=== PATIENT | female | born 1990 | race Caucasian/White ===

== ENCOUNTER 2019-12-05 11:14 | Emergency (ER) | payer OTHER, BC, SELFPAY ==
--- NOTE | ~2019-12-05 | CT_ITS ---
EXAMINATION: CT abdomen pelvis wo con DATE: 12/05/2019 12:47 INDICATION: Right flank pain. TECHNIQUE: Computed tomography (CT) of the abdomen and pelvis was performed without intravenous contr ast. Automated exposure control and iterative reconstruction technique were employed. Exam dose: 488 .05 mGy-cm total exam DLP. COMPARISON: None. FINDINGS: There is approximately 3 x 5 mm distal right ureteral calculus with moderately severe right hydroureteronephrosis, right periureteral stranding. Approximately 8 x 11 mm mid right renal nonobstructing calculus with attenuation of 1438 Hounsfield u nits. Approximately 5.3 x 8.2 mm lower pole right renal nonobstructing calculus with attenuation 970 Hounsf ield units. No left urinary tract calculus. The lung bases are clear. Heart size is within normal range. No pericardial or pleural effusion. The liver, gallbladder, bile ducts, spleen, pancreas and pancreatic duct are unremarkable. Normal mor phology of the adrenal glands. No renal mass lesion is evident. Normal caliber of the abdominal aorta. No intraperitoneal or retroperitoneal or pelvic mass lesion or adenopathy or ascites. The uterus, adnexal areas and urinary bladder are unremarkable. No bowel obstruction or intraperitoneal free air. Included skeletal structures are unremarkable. IMPRESSION: Approximately 8 x 11 mm mid right renal nonobstructing calculus with attenuation of 1438 Hounsfield units. Approximately 5.3 x 8.2 mm lower pole right renal nonobstructing calculus with attenuation 970 Hounsf ield units. Reviewed, dictated and finalized at [facility]. Reviewed, dictated and finalized at location [facility]. IMPRESSION: Approximately 8 x 11 mm mid right renal nonobstructing calculus wi th attenuation of 1438 Hounsfield units. Approximately 5.3 x 8.2 mm lower pole right renal nonobstructing calculus with attenuation 970 Hounsfield units.
--- NOTE | ~2019-12-05 | XR_ITS ---
EXAMINATION: XR abdomen/kub 1V DATE: 12/05/2019 12:39 INDICATION: Right flank pain. TECHNIQUE: A supine view of the abdomen on 2 radiographs was obtained. COMPARISON: 12/05/2019 CT abdomen pelvis FINDINGS: There is a small calcified calculus overlying the right ureterovesical junction there are 2 larger ca lcifications overlying the right kidney, consistent with right ureterovesical junction calculus and n onobstructing right kidney stones documented on the earlier 12/05/2019 CT abdomen pelvis examination. The psoas shadows are intact. No visceromegaly is evident. There is no evidence of bowel obstruction. IMPRESSION: Calcified radiographically positive right ureterovesical junction calculus Calcified right kidney stones Reviewed, dictated and finalized at location [facility].
[2019-12-05 11:16] VITALS: BP 149/93; PULSE 80; RESP 20; TEMP 36.7; O2SAT 100
[2019-12-05 11:55] LABS: Basophils Absolute Auto 0.1 K/mm3 (0.0-0.1); Basophils Percent Auto 0.9 % (0.2-1.2); Eosinophils Absolute Auto 0.1 K/mm3 (0-0.3); Eosinophils Percent Auto 1.2 % (0-4.4); Hematocrit 41.4 % (37.0-47.0); Hemoglobin 13.5 g/dL (12.0-15.0); Immature Granulocyte Absolute 0.03 K/mm3 (0.00-0.031); Immature Granulocyte Percent A 0.3 % (0-0.5); Lymphocytes Absolute Auto 1.79 K/mm3 (0.9-3.2); Lymphocytes Percent Auto 19.1 % (18.3-44.2); Mean Corpuscular HGB Conc 32.6 g/dl (32-36); Mean Corpuscular Hemoglobin 28.2 pg (26-34); Mean Corpuscular Volume 86.6 fl (80-100); Monocytes Absolute Auto 0.4 K/mm3 (0.1-0.6); Monocytes Percent Auto 4.7 % (2.6-8.5); Neutrophils Absolute Auto 6.9 K/mm3 (1.3-6.7); Neutrophils Percent Auto 73.8 % (45.5-73.1); Platelet Count Result 365 k/mm3 (150-375); Red Blood Count 4.78 M/mm3 (4.2-5.4); White Blood Count 9.4 K/mm3 (4.5-10.0)
[2019-12-05 12:00] LABS: Add Urine Microscopic? YES; Appearance Urine Clear (Clear); Bacteria Urine Trace /hpf; Bilirubin Urine Negative (Negative); Blood Urine 3+ (Negative); Color Urine Yellow (Yellow); Glucose Urine UA Negative (Negative); Ketones Urine Negative (Negative); Leukocyte Esterase Ur Negative LEU/UL (Negative); Mucus Urine Heavy /lpf; Nitrate Urine Negative (Negative); Protein Urine 1+ mg/dL (Negative); RBC Urine >75 /hpf (0-2); Specific Grav Ur 1.024 (1.001-1.035); Squamous Epithelial Cell Urine Many /hpf (Few); Urobilinogen Urine Negative mg/dL (<2.0)
[2019-12-05] MEDS: SODIUM CHLORIDE 0.9% IV 1,000 ML 999 ML IV CONT (12:07)
[2019-12-05] MEDS: ONDANSETRON INJ 4 MG/2 ML VIAL IV PUSH (12:08)
[2019-12-05] MEDS: FAMOTIDINE 20 MG/2 ML VIAL IV PUSH (12:08)
--- NOTE | 2019-12-05 13:01 | ED.BACK ---
HPI - Back Pain/Injury General Chief Complaint: Back Pain/Injury <Hadely Herrera PA-C - Last Filed: 12/05/19 14:43> Stated Complaint: poss. kidney stone <Hadley Herrera PA-C - Last Filed: 12/05/19 14:43> Time Seen by Provider: 12/05/19 11:27 <Hadley Herrera PA-C - Last Filed: 12/05/19 14:43> Source: patient <Hadley Herrera PA-C - Last Filed: 12/05/19 14:43> Mode of arrival: ambulatory <Hadley Herrera PA-C - Last Filed: 12/05/19 14:43> Limitations: no limitations <Hadley Herrera PA-C - Last Filed: 12/05/19 14:43> History of Present Illness HPI Narrative: Patient is a 29-year-old female who presents to emergency department for acute onset of right flank pain that began this morning as a sharp stabbing pain with associated nausea wraps from the back to the front denies similar occurrence in the past presents per private vehicle in no distress did take naproxen this morning patient denies injury trauma or recent illness <Hadley Herrera PA-C - Last Filed: 12/05/19 14:43> Related Data Home Medications: Home Medications Medication Instructions Recorded Confirmed [facility] cmb#95-ferrous fumarate-FA 1 tablet PO DAILY 05/30/19 05/30/19 [] ferrous sulfate [Iron (ferrous 325 mg PO BID 05/30/19 05/30/19 sulfate)] <Hadley Herrera PA-C - Last Filed: 12/05/19 14:43> Allergies/Adverse Reactions: Allergies Allergy/AdvReac Type Severity Reaction Status Date / Time No Known Allergies Allergy Verified 05/28/19 11:25 <Hadley Herrera PA-C - Last Filed: 12/05/19 14:43> Review of Systems Review of Systems: All systems reviewed & are unremarkable except as noted in HPI and below <Hadley Herrera PA-C - Last Filed: 12/05/19 14:43> PMFSH Surgical History Surgical History: Surgical History (Updated 12/05/19 @ 13:07 by Hadley Herrera PA-C) Previous section <Hadley Herrera PA-C - Last Filed: 12/05/19 14:43> Social History Social History: Social History Smoking status: Never smoker Second hand tobacco smoke exposure: No Substance use: never Gender identity (if verbalized by the patient): Female Spiritual care concerns: No <Hadley Herrera PA-C - Last Filed: 12/05/19 14:43> Exam Narrative: Exam Narrative: GENERAL: Well-appearing, well-nourished, and in no acute distress. HEAD: Normocephalic, atraumatic. EYES: PERRLA and EOMI. ENT: Nares clear, no rhinorrhea or epistaxis. Mucous membranes moist. CHEST: Clear to auscultation. No respiratory distress. No wheezes rales or rhonchi HEART: Regular rate and rhythm. No murmur heard. Normal peripheral pulses. ABDOMEN: Soft, nontender, nondistended EXTREMITIES: Normal range of motion. No edema. SKIN: Warm, dry, no rash. NEURO: No focal deficits. Alert and oriented x3. Cranial nerves II through XII grossly intact PSYCH: Normal mood and affect. <Hadley Herrera PA-C - Last Filed: 12/05/19 14:43> Course Consultations Consultation #1: Discussed case with urologist who knows the patient can be followed up on an outpatient basis provided with reasons to return would like the patient to be placed on Bactrim for 3 days <Hadley Herrera PA-C - Last Filed: 12/05/19 14:43> Date: 12/05/19 <Hadley Herrera PA-C - Last Filed: 12/05/19 14:43> Time: 14:38 <Hadley Herrera PA-C - Last Filed: 12/05/19 14:43> Vital Signs Vital signs: Vital Signs Temperature 98.1 F 12/05/19 11:16 Pulse Rate 80 12/05/19 11:16 Respiratory Rate 12/05/19 11:16 Blood Pressure 149/93 H 12/05/19 11:16 Pulse Oximetry 100 12/05/19 11:16 Temperature 98.1 F 12/05/19 11:16 Pulse Rate 80 12/05/19 15:21 Respiratory Rate 20 12/05/19 15:21 Blood Pressure 132/78 12/05/19 15:21 Pulse Oximetry 99 12/05/19 15:21 <Hadley Herrera PA-C - Last Filed: 12/05/19 14:43>
[2019-12-05 13:06] LABS: Blood Urea Nitrogen 15 mg/dL (7-17); Carbon Dioxide 25 mmol/L (22-30); Chloride 106 mmol/L (98-107); Estimated CRCL calculation 136 ml/min; Estimated Glomerular Filt Rate > 60; Glucose 116 mg/dL (65-105); Potassium 3.6 mmol/L (3.4-5.0); Sodium 139 mmol/L (137-145)
[2019-12-05 13:20] VITALS: BP 128/78; PULSE 76; RESP 18; O2SAT 99
[2019-12-05 15:21] VITALS: BP 132/78; PULSE 80; RESP 20; O2SAT 99
== END 2019-12-05 15:22 | disposition home or self-care (01) ==
PROVIDERS: Emergency Provider General Practice
DX: N20.0 Calculus of kidney (principal)
CPT/HCPCS: 36415; 74018; 74176; 80048; 81001; 81025; 85025; 96361; 96365; 96375; 99284; J0131; J2405; J7030

== ENCOUNTER 2019-12-11 10:25 | Outpatient (CLI) | payer OTHER, BC, SELFPAY ==
--- NOTE | ~2019-12-11 | XR_ITS ---
XR abdomen/kub 1V 12/11/2019 10:45 Indication: Right renal stones Procedure: KUB Comparison: 12/05/2019 Findings: There are right renal stones, largest measuringr 1.5 cm. There are pelvic phleboliths, unch anged. Bowel gas pattern is nonobstructive. No acute osseous abnormality. Impression: 1: Right nephrolithiasis, stable. Reviewed, dictated and finalized at location [facility]. Impression: 1: Right nephrolithiasis, stable.
== END 2019-12-11 10:26 | disposition home or self-care (01) ==
PROVIDERS: PCP Internal Medicine; Visit Provider Urology
DX: N20.0 Calculus of kidney (principal)
CPT/HCPCS: 74018

== ENCOUNTER 2019-12-16 08:04 | Outpatient (CLI) | payer OTHER, BC, SELFPAY | END 2019-12-16 08:05 | disposition home or self-care (01) | LOC: ANHSURGERY 08:06 | PROVIDERS: PCP Internal Medicine; Visit Provider Urology | DX: N20.1 Calculus of ureter (principal) | CPT/HCPCS: 87086; 87088 ==

== ENCOUNTER 2019-12-18 00:03 | Outpatient (CLI) | payer OTHER, BC, SELFPAY ==
[2019-12-18 17:43] LABS: SARS-CoV-2 RNA PCR Negative
== END 2019-12-18 00:04 | disposition home or self-care (01) ==
LOC: ANHCOVIDDT 00:03
PROVIDERS: PCP Internal Medicine; Visit Provider Urology
DX: Z01.818 Encounter for other preprocedural examination (principal); Z11.59 Encounter for screening for other viral diseases
CPT/HCPCS: 87635; C9803; U0003

== ENCOUNTER 2019-12-20 01:50 | Day surgery (SDC) | payer OTHER, BC, SELFPAY ==
[2019-12-12 13:39] VITALS: BMI 39.1
--- NOTE | ~2019-12-20 | XR_ITS ---
EXAMINATION: XR retrograde pyelo w/stent RT DATE: 12/20/2019 10:56 INDICATION: Nephrolithiasis for planned stone extraction and stent placement TECHNIQUE: 51 fluoroscopic images of the abdomen and pelvis were obtained during procedure performed by Dr. Lynn. Radiologist was not present for the imaging or procedure. The amount of fluoroscopy t angle used during this procedure was 0.4 minutes. COMPARISON: CT dated 12/05/2019 FINDINGS: Plaque Maker image demonstrates a couple stones at the lower pole of the right kidney. The smaller stone pre viously seen at the right ureterovesicular junction is not appreciated on the current fluoroscopic im ages. Subsequent images demonstrate contrast and a lucent gas bubble extending cephalad along the nor mal caliber right ureter. There is moderate right hydronephrosis. Final images demonstrate internal u reteral stent advanced over a wire into the right renal pelvis with distal loop in the bladder. It is unclear whether the stones remain within the contrast opacified inferior calyces on the final images . IMPRESSION: 1. Nephrolithiasis and moderate right hydronephrosis with placement of a right internal ureteral sten t. Unclear whether the stones were extracted and would correlate with procedure note. Reviewed, dictated and finalized at location [facility]. IMPRESSION: 1. Nephrolithiasis and moderate right hydronephrosis with placement of a right internal ureteral stent. Unclear whether the stones were extracted and would co rrelate with procedure note.
--- NOTE | 2019-12-20 07:20 | WPDHPUPDATE1 ---
History and Physical Update Update Date/Time: 12/20/19 07:20 History and Physical has been reviewed, including an updated exam of the patient. There are NO changes in the patient's condition. Risks, benefits, and alternatives have been discussed and questions answered. Patient agrees to proceed with procedure.
[2019-12-20 09:31] VITALS: BP 125/71; PULSE 80; RESP 20; TEMP 36.3; O2SAT 99
[2019-12-20] MEDS: LACTATED RINGERS 1,000 ML 30 ML IV CONT (10:00)
--- NOTE | 2019-12-20 10:11 | WPDANESEPPF ---
Anes - Initial Pre Proc Eval Procedure: Operation Date: 12/20/19 11:15 Proposed Procedures p Cystoscopy, Right Ureteroscopy, Right Stent Placement - Jose Lynn MD Date/Time: 12/20/19 10:11 Surgeon: Jose Lynn MD Pre Op Diagnosis: Right ureteral Stone Patient Data Age: 29 Gender: F Height: 5 ft 4 in Weight: 105.2 kg Last Vital Signs Temp 97.3 F L 12/20/19 09:31 Pulse 80 12/20/19 09:31 Resp 20 12/20/19 09:31 BP 125/71 12/20/19 09:31 Pulse Ox 99 12/20/19 09:31 Allergies Allergy/AdvReac Type Severity Reaction Status Date / Time No Known Allergies Allergy Verified 12/20/19 09:36 Home Medications Medication Instructions Recorded Confirmed Type hydrocodone-acetaminophen 1 tablet PO Q6H PRN #7 tablet 12/05/19 12/20/19 Rx ketorolac 10 mg PO QID PRN #5 tablet 12/05/19 12/20/19 Rx ondansetron 4 mg PO Q6H PRN #10 tablet 12/05/19 12/20/19 Rx tamsulosin [Flomax] 0.4 mg PO DAILY #7 cap 12/05/19 12/20/19 Rx Patient hx anesthesia problems: none Family hx anesthesia problems: none [facility] Past Medical History Medical History (Updated 12/20/19 @ 10:10 by Henry Alvarado MD) Anxiety Morbid obesity Surgical History Surgical History (Updated 12/05/19 @ 13:07 by Hadley Herrera PA-C) Previous section Social History Social History Smoking status: Never smoker Second hand tobacco smoke exposure: No Substance use: never Gender identity (if verbalized by the patient): Female Spiritual care concerns: No Anes - Eval Final PreProcedure Day of Procedure 12/20/19 10:11 Patient weight: morbidly obese Heart: regular rate and rhythm Lungs: clear to auscultation Airway: Mallampati scale class II Neurological: alert and oriented Last oral intake: >/= 8 hours ASA classification: III Emergent: no Anesthetic plan: proceed Anesthesia type and monitoring: general LMA and standard monitoring Informed Consent: The patient's anesthetic plan and its attendant risks and benefits were discussed with the patient/family/POA. Questions were solicited and answers provided to the satisfaction of the patient/family/POA.
--- NOTE | 2019-12-20 10:21 | WPDANESEPPF ---
Anes - Initial Pre Proc Eval Procedure: Operation Date: 12/20/19 11:15 Proposed Procedures p Cystoscopy, Right Ureteroscopy, Right Stent Placement - Jose Lynn MD Date/Time: 12/20/19 10:21 Surgeon: Jose Lynn MD Pre Op Diagnosis: Right ureteral Stone Patient Data Age: 29 Gender: F Height: 5 ft 4 in Weight: 105.2 kg Last Vital Signs Temp 36.3 C L 12/20/19 09:31 Pulse 80 12/20/19 09:31 Resp 20 12/20/19 09:31 BP 125/71 12/20/19 09:31 Pulse Ox 99 12/20/19 09:31 Allergies Allergy/AdvReac Type Severity Reaction Status Date / Time No Known Allergies Allergy Verified 12/20/19 09:36 Home Medications Medication Instructions Recorded Confirmed Type hydrocodone-acetaminophen 1 tablet PO Q6H PRN #7 tablet 12/05/19 12/20/19 Rx ketorolac 10 mg PO QID PRN #5 tablet 12/05/19 12/20/19 Rx ondansetron 4 mg PO Q6H PRN #10 tablet 12/05/19 12/20/19 Rx tamsulosin [Flomax] 0.4 mg PO DAILY #7 cap 12/05/19 12/20/19 Rx Patient hx anesthesia problems: none Family hx anesthesia problems: none PMFSH Past Medical History Medical History Anxiety Morbid obesity Surgical History Surgical History Previous section Social History Social History Smoking status: Never smoker Second hand tobacco smoke exposure: No Substance use: never Gender identity (if verbalized by the patient): Female Spiritual care concerns: No Anes - Eval Final PreProcedure Day of Procedure 12/20/19 10:21 Patient weight: morbidly obese Heart: regular rate and rhythm Lungs: clear to auscultation Airway: Mallampati scale class II Neurological: alert and oriented Last oral intake: >/= 8 hours ASA classification: III Emergent: no Anesthetic plan: proceed Anesthesia type and monitoring: general LMA and standard monitoring Informed Consent: The patient's anesthetic plan and its attendant risks and benefits were discussed with the patient/family/POA. Questions were solicited and answers provided to the satisfaction of the patient/family/POA.
[2019-12-20] MEDS: ceFAZolin 2 GM/D5W 50 ML 2 GM/50 ML BAG IVPB (10:25)
[2019-12-20] MEDS: LIDOCAINE HCL 2% GEL UROJET 10 ML PKG MUCOUS MEM (10:41)
[2019-12-20 10:58] VITALS: BP 122/72; PULSE 99; RESP 14; TEMP 36.6; O2SAT 99
--- NOTE | 2019-12-20 10:58 | PM.PROC ---
Procedure Note - Detailed Date of procedure: 12/20/19 Pre-op diagnosis: Right ureteral Stone Post-op diagnosis: same Procedure performed: Cystoscopy, right retrograde pyelogram, interpretation of retrograde pyelogram, right ureteroscopy, stone extraction, stent placement Description of procedure: She is correctly identified informed consents obtained. From the operating room. She was given general anesthesia. Placed in the dorsal lithotomy position. Pressure points were padded. She was given appropriate perioperative antibiotics. A time-out performed. On cystoscopy shows normal-appearing bladder. Technical Agronomist radiograph revealed her renal stones. As well as her distal ureteral stone. I did a retrograde pyelogram on the right. She had a hydronephrosis proximal stone and significant hydronephrosis of the renal pelvis. Placed a guidewire to the kidney. I dilated the ureter the 10 dilator. I performed ureteroscopy. The stone was encountered. It was basketed and extracted intact. I then re-examined the ureter there is no additional stones. Due to the hydronephrosis I elected to place a stent. I placed a 4.8 variable length stent in the standard fashion. Proximal coil in the renal pelvis. Distal coil in the bladder. Her bladder was drained she was awakened and transferred to the PACU in stable condition. Implants: 4.8 ureteral stent Anesthesia: GLMA Surgeon: Jose Lynn MD Estimated blood loss (mL): 0 Drains: No Packing: No Pathology: yes (Stone) Complications: No immediate complications Condition: stable Disposition: PACU
[2019-12-20 11:10] VITALS: BP 115/72; PULSE 88; RESP 10; O2SAT 98
[2019-12-20 11:20] VITALS: BP 121/67; PULSE 69; RESP 16
[2019-12-20 11:50] VITALS: BP 108/71; PULSE 75; RESP 16
[2019-12-20 12:20] VITALS: BP 107/73; PULSE 59; RESP 16
--- NOTE | 2019-12-20 12:58 | SUR.PHASEII ---
1220 updated spouse and told him to head this way
== END 2019-12-20 13:07 | disposition home or self-care (01) ==
PROVIDERS: PCP Internal Medicine; Visit Provider Urology
PROC: (CPT 52352; principal; 2019-12-20 11:15)
DX: N13.2 Hydronephrosis with renal and ureteral calculous obstruction (principal); F41.9 Anxiety disorder, unspecified; E66.01 Morbid (severe) obesity due to excess calories; Z68.39 Body mass index [BMI] 39.0-39.9, adult
CPT/HCPCS: 52332; 52352; 74420; 82365; 88300; A9270; C1769; C2617; J0690; J1100; J2250; J2405; J2704; J3010; J7120; Q9966

== ENCOUNTER 2020-02-06 13:22 | Outpatient (CLI) | payer OTHER, BC, SELFPAY ==
[2020-02-06 14:03] LABS: Prothrombin Time 12.5 Seconds (11.1-14.7)
[2020-02-06 14:04] LABS: Partial Thromboplastin Time 26.1 SECONDS (22.3-36.8)
[2020-02-06 14:25] LABS: Beta HCG Quantitative < 2.39 mIU/ML
== END 2020-02-06 13:23 | disposition home or self-care (01) ==
LOC: ANHSURGERY 13:25
PROVIDERS: PCP Internal Medicine; Visit Provider Urology
DX: N20.0 Calculus of kidney (principal)
CPT/HCPCS: 36415; 84702; 85610; 85730; 87077; 87086; 87088

== ENCOUNTER 2020-02-12 00:41 | Outpatient (CLI) | payer OTHER, BC, SELFPAY ==
[2020-02-12 19:19] LABS: SARS-CoV-2 RNA PCR Negative
== END 2020-02-12 00:42 | disposition home or self-care (01) ==
LOC: ANHCOVIDDT 00:41
PROVIDERS: PCP Internal Medicine; Visit Provider Urology
DX: Z01.812 Encounter for preprocedural laboratory examination (principal); Z11.59 Encounter for screening for other viral diseases
CPT/HCPCS: 87635; C9803; U0003

== ENCOUNTER 2020-02-14 00:51 | Day surgery (SDC) | payer OTHER, BC, SELFPAY ==
[2020-02-03 14:26] VITALS: BMI 39.8
--- NOTE | 2020-02-07 13:05 | P.HP_ITS ---
History of Present Illness History of Present Illness Consent: Risks, benefits, and alternatives have been discussed and questions answered. Patient agrees to proceed with procedure. Chief complaint: Rigth Renal Stone Narrative: Shilpa Sun is a 29 year old female who is status post right endoscopic ureteral stone extraction in December [address] Jose Lynn. She has known residual stones in the right kidney and now presents for right ESWL. Review of Systems Cardiovascular: Cardiovascular: Denies chest pain, Denies lightheadedness, Denies palpitations and Denies dyspnea Respiratory: Respiratory: Denies dyspnea Gastrointestinal: Gastrointestinal: Denies diarrhea, Denies nausea and Denies vomiting Genitourinary: Genitourinary: Denies hematuria and Denies dysuria Endocrine: Endocrine: Denies palpitations PMFSH Past Medical History Medical History Anxiety Morbid obesity Surgical History Surgical History Previous section Family History Family History Other Unknown family medical history Social History Social History Smoking status: Never smoker Second hand tobacco smoke exposure: No Substance use: never Gender identity (if verbalized by the patient): Female Spiritual care concerns: No Meds Home Medications and Allergies Home Medications Medication Instructions Recorded Confirmed Type No Home Medications 02/03/20 02/03/20 History Allergies Allergy/AdvReac Type Severity Reaction Status Date / Time No Known Allergies Allergy Verified 02/03/20 14:27 Exam Const: General: no acute distress Resp: Effort & Inspection: normal respiratory effort GI: Inspection: non-distended GI Palp: No abdominal tenderness and No Guarding due to palpation present (GI) Auscultation: normal bowel sounds Assessment and Plan Assessment and plan (1) Right kidney stone: Code(s): N20.0 - Calculus of kidney Status: Acute Assessment and Plan: * Right ESWL
[2020-02-14] VITALS (9 sets, daily range): BP systolic 110–138; BP diastolic 67–80; PULSE 63–99; RESP 12–16; TEMP 36.2–36.3; O2SAT 95–100
--- NOTE | ~2020-02-14 | XR_ITS ---
EXAMINATION: XR abdomen/kub 1V DATE: 02/14/2020 10:15 INDICATION: Right renal stone. TECHNIQUE: A supine view of the abdomen on 2 radiographs was obtained. COMPARISON: CT abdomen and pelvis 12/05/2019, radiograph 12/11/2019 FINDINGS: There are no dilated loops of bowel. There are 12 mm and 6 mm stones in right kidney. IMPRESSION: 1. Right kidney stones. Reviewed, dictated and finalized at location [facility]. IMPRESSION: 1. Right kidney stones.
--- NOTE | 2020-02-14 07:15 | WPDHPUPDATE1 ---
History and Physical Update Update Date/Time: 02/14/20 07:15 History and Physical has been reviewed, including an updated exam of the patient. There are NO changes in the patient's condition. Risks, benefits, and alternatives have been discussed and questions answered. Patient agrees to proceed with procedure.
[2020-02-14] MEDS: ceFAZolin 2 GM/D5W 50 ML 2 GM/50 ML BAG IVPB (10:55)
[2020-02-14] MEDS: LACTATED RINGERS 1,000 ML 30 ML IV CONT ×2 (10:55→13:24)
--- NOTE | 2020-02-14 11:10 | WPDANESEPPF ---
Anes - Initial Pre Proc Eval Procedure: Operation Date: 02/14/20 12:00 Proposed Procedures p Right Extracorporeal Shock Wave Lithotripsy - Jose Lynn MD Date/Time: 02/14/20 11:10 Surgeon: Jose Lynn MD Pre Op Diagnosis: Rigth Renal Stone Patient Data Age: 29 Gender: F Height: 5 ft 4 in Weight: 106.9 kg Last Vital Signs Temp 97.4 F L 02/14/20 10:30 Pulse 87 02/14/20 10:30 Resp 16 02/14/20 10:30 BP 127/79 02/14/20 10:30 Pulse Ox 98 02/14/20 10:30 Allergies Allergy/AdvReac Type Severity Reaction Status Date / Time No Known Allergies Allergy Verified 02/03/20 14:27 Home Medications Medication Instructions Recorded Confirmed Type No Home Medications 02/03/20 02/03/20 History Patient hx anesthesia problems: none Family hx anesthesia problems: none PMFSH Past Medical History Medical History Anxiety Morbid obesity Surgical History Surgical History Previous section Family History Family History Other Unknown family medical history Social History Social History Smoking status: Never smoker Second hand tobacco smoke exposure: No Substance use: never Gender identity (if verbalized by the patient): Female Spiritual care concerns: No Anes - Eval Final PreProcedure Day of Procedure 02/14/20 11:10 Patient weight: morbidly obese Heart: regular rate and rhythm Lungs: clear to auscultation Airway: Mallampati scale class II Neurological: alert and oriented Last oral intake: >/= 8 hours ASA classification: III Emergent: no Anesthetic plan: proceed Anesthesia type and monitoring: general LMA and standard monitoring Informed Consent: The patient's anesthetic plan and its attendant risks and benefits were discussed with the patient/family/POA. Questions were solicited and answers provided to the satisfaction of the patient/family/POA.
--- NOTE | 2020-02-14 12:22 | WPDHPUPDATE1 ---
History and Physical Update Update Date/Time: 02/14/20 12:22 History and Physical has been reviewed, including an updated exam of the patient. There are NO changes in the patient's condition. Risks, benefits, and alternatives have been discussed and questions answered. Patient agrees to proceed with procedure. will place stent
--- NOTE | 2020-02-24 12:25 | PM.PROC ---
Procedure Note - Detailed Date of procedure: 02/24/20 Pre-op diagnosis: Rigth Renal Stone Post-op diagnosis: same Procedure performed: Cystoscopy and right ureteral stent Right extracorporeal shockwave lithotripsy Description of procedure: she was correctly identified and informed consent obtained. She by the operating room. She was given general anesthesia. She was placed in the frogleg position. Her genitalia were prepped and draped in a sterile fashion. Time-out performed. I performed cystoscopy. I used fluoroscopy to identify the stone. I did divide the ureteral orifice. The bladder is otherwise normal. I placed a guidewire to the kidney. I then placed ureteral stent in standard fashion. Proximal curl was in the kidney. Distal curl was seen in the bladder. She was then repositioned for lithotripsy. We targeted the stone with Fluoroscopy. We delivered 2500 shocks. There appeared to be fragmentation of the stone. Nova levels up to 4. She was awakened and transferred to the PACU in stable condition. Anesthesia: GLMA Surgeon: Jose Lynn MD Packing: No Pathology: none sent Complications: No immediate complications Condition: stable Disposition: PACU
== END 2020-02-14 15:30 | disposition home or self-care (01) ==
PROVIDERS: PCP Internal Medicine; Visit Provider Urology
PROC: (CPT 50590; principal; 2020-02-14 12:00)
DX: N20.0 Calculus of kidney (principal)
CPT/HCPCS: 50590; 74018; A9270; C1769; C2617; J0690; J1100; J2250; J2405; J2704; J3010; J7120

== ENCOUNTER 2020-03-04 17:11 | Outpatient (CLI) | payer OTHER, BC, SELFPAY ==
--- NOTE | ~2020-03-04 | XR_ITS ---
EXAMINATION: XR abdomen/kub 1V DATE: 03/04/2020 17:38 INDICATION: Right renal stone post lithotripsy TECHNIQUE: A supine view of the abdomen on 2 radiographs was obtained. COMPARISON: 02/14/2020 FINDINGS: Numerous residual tiny stone fragments project over the lower pole of the right kidney at the site of the previous noted larger renal stones consistent with history of interval lithotripsy. Right mba internship al ureteral stent with loops formed over the expected location of the right renal pelvis and bladder. No stone fragments seen along the stent. Phlebolith in the right hemipelvis. No evident left-sided u rolithiasis. Normal bowel gas pattern. IMPRESSION: 1. Numerous residual tiny stone fragments at the site of earlier large renal stones at the lower pole of the right kidney consistent with interval lithotripsy. 2. No stone fragments seen along the course of a right internal ureteral stent which is in expected p osition. Reviewed, dictated and finalized at location A. IMPRESSION: 1. Numerous residual tiny stone fragments at the site of earlier large renal st ones at the lower pole of the right kidney consistent with interval lithotripsy . 2. No stone fragments seen along the course of a right internal ureteral stent which is in expected position.
== END 2020-03-04 17:12 | disposition home or self-care (01) ==
PROVIDERS: PCP Internal Medicine; Visit Provider Urology
DX: N20.0 Calculus of kidney (principal)
CPT/HCPCS: 74018

== ENCOUNTER 2021-02-24 08:59 | Outpatient (CLI) | payer OTHER, BC, SELFPAY ==
--- NOTE | 2021-02-24 11:00 | NEURO_ITS ---
Impression: # Complains of nocturnal paresthesia and hand numbness. # Bilateral Carpal Tunnel Syndrome. # Bilateral ulnar neuropathy across the elbows. # Normal needle/EMG exam. Nerve Conduction Studies Anti Sensory Summary Table Stim Site NR Peak (ms) P-T Amp (?V) Site1 Site2 Delta-P (ms) Dist (cm) Tray (m/s) Left Median Anti Sensory (2-3nd Digit) Wrist 4.1 28.0 Wrist 2-3nd Digit 4.1 14.0 34 Wrist 4.3 18.3 Wrist 2-3nd Digit 4.1 14.0 34 Right Median Anti Sensory (2-3nd Digit) Wrist 3.4 22.3 Wrist 2-3nd Digit 3.4 14.0 41 Wrist 4.6 27.6 Wrist 2-3nd Digit 3.4 14.0 41 Left Radial Anti Sensory (Base 1st Digit) Wrist 1.8 17.6 Wrist Base 1st Digit 1.8 0.0 Right Radial Anti Sensory (Base 1st Digit) Wrist 2.2 9.5 Wrist Base 1st Digit 2.2 0.0 Left Ulnar Anti Sensory (5th Digit) Wrist 2.3 66.4 Wrist 5th Digit 2.3 14.0 61 Right Ulnar Anti Sensory (5th Digit) Wrist 2.1 68.6 Wrist 5th Digit 2.1 14.0 67 Motor Summary Table Stim Site NR Onset (ms) O-P Amp (mV) Site1 Site2 Delta-0 (ms) Dist (cm) Tray (m/s) Left Median Motor (Abd Poll Brev) Wrist 4.0 5.1 Elbow Wrist 4.8 28.0 58 Elbow 8.8 4.2 Right Median Motor (Abd Poll Brev) Wrist 4.3 5.1 Elbow Wrist 4.5 26.0 58 Elbow 8.8 5.4 Left Ulnar Motor (Abd Dig Minimi) Wrist 2.7 4.3 A Elbow Wrist 5.3 26.0 49 A Elbow 8.0 2.4 B Elbow Wrist 3.5 22.0 63 B Elbow 6.2 4.1 Right Ulnar Motor (Abd Dig Minimi) Wrist 2.7 5.8 A Elbow Wrist 5.6 28.0 50 A Elbow 8.3 2.9 B Elbow Wrist 3.7 22.0 59 B Elbow 6.4 4.3 F Wave Studies NR F-Lat (ms) L-R F-Lat (ms) Left Median (Mrkrs) (Abd Poll Brev) 29.14 0.89 Right Median (Mrkrs) (Abd Poll Brev) 30.03 0.89 Left Ulnar (Mrkrs) (Abd Dig Min) 27.19 0.06 Right Ulnar (Mrkrs) (Abd Dig Min) 27.13 0.06 MTDD
== END 2021-02-24 09:00 | disposition home or self-care (01) ==
PROVIDERS: PCP Internal Medicine; Visit Provider Internal Medicine
DX: R20.2 Paresthesia of skin (principal); G56.03 Carpal tunnel syndrome, bilateral upper limbs; G56.23 Lesion of ulnar nerve, bilateral upper limbs
CPT/HCPCS: 95911

== ENCOUNTER 2021-05-31 15:04 | Outpatient (CLI) | payer OTHER, BC, SELFPAY ==
--- NOTE | ~2021-05-31 | XR_ITS ---
EXAMINATION: XR abdomen/kub 1V DATE: 05/31/2021 15:27 INDICATION: Right flank pain. TECHNIQUE: A supine view of the abdomen on 2 radiographs was obtained. COMPARISON: CT abdomen and pelvis 12/05/2019, radiograph 01/03/2020 FINDINGS: There are no dilated loops of bowel. There is a 5 mm stone in right kidney. IMPRESSION: 1. 5 mm right kidney stone. Reviewed, dictated and finalized at location A. OR RISK ANALYST IMPRESSION: 1. 5 mm right kidney stone.
== END 2021-05-31 15:05 | disposition home or self-care (01) ==
LOC: ANHIMG 15:15
PROVIDERS: PCP Internal Medicine; Visit Provider Nurse Practitioner
DX: R10.9 Unspecified abdominal pain (principal); N20.0 Calculus of kidney
CPT/HCPCS: 74018

== ENCOUNTER 2021-08-02 09:24 | Outpatient (CLI) | payer OTHER, BC, SELFPAY ==
--- NOTE | ~2021-08-02 | XR_ITS ---
EXAMINATION: XR abdomen/kub 1V DATE: 08/02/2021 09:45 INDICATION: Kidney stones. TECHNIQUE: A supine view of the abdomen on 2 radiographs was obtained. COMPARISON: Abdomen radiographs 05/31/2021, CT abdomen and pelvis 12/05/19 FINDINGS: There are no dilated loops of bowel. The kidneys are obscured by bowel. There is a phleboli th in right pelvis. IMPRESSION: 1. No visible urolithiasis. Reviewed, dictated and finalized at location A. FACTURER'S REPRESENTATIVE IMPRESSION: 1. No visible urolithiasis.
== END 2021-08-02 09:25 | disposition home or self-care (01) ==
LOC: ANHIMG 09:30
PROVIDERS: PCP Internal Medicine; Visit Provider Urology
DX: R10.9 Unspecified abdominal pain (principal)
CPT/HCPCS: 74018

== ENCOUNTER 2023-04-22 02:51 | Inpatient (IN) | payer OTHER, BC, SELFPAY ==
[2023-04-22] VITALS (9 sets, daily range): BP systolic 94–126; BP diastolic 56–82; PULSE 74–95; RESP 15–20; TEMP 36.3–37; O2SAT 98–100; BMI 35.0
--- NOTE | ~2023-04-22 | MR_ITS ---
EXAMINATION: MR MRCP wo/w con/w 3D wo ind DATE: 04/22/2023 12:46 INDICATION: Abdominal pain. Acute cholecystitis. TECHNIQUE: Magnetic resonance imaging (MRI) of the abdomen was performed without and with 19 mL Multi Khurram intravenous contrast. Sequences included coronal T2-weighted FS FSE, coronal T2-weighted FSE, a xial T1-weighted LAVA, coronal FS FIESTA, axial dual-echo T1-weighted SPGR, coronal lava-FLEX, sagitt al T2-weighted FSE, axial T2-weighted FSE, and axial DWI. Thick-slab T2-weighted FSE images were obta ined for magnetic resonance cholangiopancreatography (MRCP). Maximum intensity projection 3-D reconst ructions of the volumetric data were created by the technologist. Postcontrast sequences included cor onal LAVA-flex and time course of axial T1-weighted LAVA. COMPARISON: CT abdomen and pelvis 04/22/23, 12/05/2019 FINDINGS: ABDOMEN MRI: The liver and spleen are normal. There are gallstones in the gallbladder, which is tim l in size. Gallbladder wall thickening is noted. There is incomplete pancreas divisum. The adrenal gl ands and left kidney are normal. There is moderate right hydronephrosis. There are no dilated loops o f bowel. There are no pathologically enlarged lymph nodes. There is no free intraperitoneal fluid. ABDOMEN MRCP: The common duct is dilated to 8 mm. No choledocholithiasis. IMPRESSION: 1. Mildly dilated common duct. No choledocholithiasis. 2. Cholelithiasis. Gallbladder wall thickening is suspicious for acute cholecystitis. 3. Chronic moderate right hydronephrosis. Reviewed, dictated and finalized at location E. IMPRESSION: 1. Mildly dilated common duct. No choledocholithiasis. 2. Cholelithiasis. Gallbladder wall thickening is suspicious for acute cholecys titis. 3. Chronic moderate right hydronephrosis.
--- NOTE | ~2023-04-22 | XR_ITS ---
EXAMINATION: XR ERCP DATE: 04/25/2023 12:46 INDICATION: Choledocholithiasis TECHNIQUE: Two intraoperative fluoroscopic images obtained during endoscopic retrograde cholangiopanc reatography (ERCP) are submitted for review. Total fluoroscopic time was 54.7 seconds seconds. COMPARISON: None. FINDINGS: Fluoroscopic images demonstrate cannulation and sweeping of a normal caliber common bile du ct. Please refer to procedure note for full details. IMPRESSION: 1. Please refer to the ERCP procedure note for additional details. Reviewed, dictated and finalized at location F.
--- NOTE | ~2023-04-22 | XR_ITS ---
EXAMINATION: XR cholangiogram surg 1st inj DATE: 04/24/2023 14:14 INDICATION: Acute cholecystitis. TECHNIQUE: 154 fluoroscopic images of the right upper quadrant were obtained during intraoperative ch olangiography performed by the surgeon. I was not present in the operating room. Fluoroscopy exposure time was 24 seconds. COMPARISON: MRCP 04/22/2023 FINDINGS: There is a catheter in the cystic duct. There is contrast opacification of the biliary tree . There is dilatation of the common duct. Contrast does not pass to the duodenum. IMPRESSION: 1. Dilated common duct without passage of contrast to the duodenum. No obstructing stone or massotherapist ifically identified. Reviewed, dictated and finalized at location A. IMPRESSION: 1. Dilated common duct without passage of contrast to the duodenum. No obstruct ing stone or mass specifically identified.
--- NOTE | ~2023-04-22 | CT_ITS ---
EXAMINATION: CT abdomen pelvis w con DATE: 04/22/2023 03:54 INDICATION: Epigastric and upper abdominal pain, nausea and vomiting TECHNIQUE: Computed tomography (CT) of the abdomen and pelvis was performed with 100 CC Omnipaque 350 intravenous contrast. Automated exposure control and iterative reconstruction technique were employe d. Exam dose: 900.27 mGy-cm total exam DLP. COMPARISON: 12/05/2019 CT abdomen pelvis FINDINGS: The lung bases are clear. Normal heart size. No pericardial or pleural effusion. There is interval gallbladder wall thickening/edema since 12/05/2019 suggesting acute cholecystitis. C onsider gallbladder ultrasound. There is increased size of the common bile duct since 12/05/2019, hanna uring up to approximately 8.3 mm diameter. No hepatic, splenic, pancreatic or adrenal space-occupying mass lesion is detected. Approximately 4 mm upper pole right renal cyst. Interval resolution of distal right ureteral calculus since 12/05/2019 and diminished size of a lower pole right renal calculus which currently measures approximately 4.8 mm AP, 6.5 mm transverse and 2.8 mm in vertical dimension. Prominent persistent right hydronephrosis and normal caliber ureter, suggesting possible ureteropelvi c disproportion. No left urinary tract calculus or left hydronephrosis. Normal caliber of the abdominal aorta. No intraperitoneal or retroperitoneal or pelvic mass lesion or adenopathy or ascites is detected. No CT evidence of appendicitis. The uterus and ovaries and urinary bladder appear unremarkable. Small fat-containing umbilical hernia. No suspicious osteolytic or osteoblastic lesions or other significant skeletal abnormality is noted. IMPRESSION: Gallbladder wall thickening/edema suggesting acute cholecystitis Common bile duct dilatation, measuring up to 8.3 mm. Consider possible choledocholithiasis. Chronic right prominent hydronephrosis, possibly due to ureteropelvic disproportion Diminished size of lower pole right renal nonobstructing calculus and resolution of right ureterovesi bon junction calculus since 12/05/2019 Reviewed, dictated and finalized at Location A. Reviewed, dictated and finalized at location A. IMPRESSION: Gallbladder wall thickening/edema suggesting acute cholecystitis Common bile duct dilatation, measuring up to 8.3 mm. Consider possible choledoc holithiasis. Chronic right prominent hydronephrosis, possibly due to ureteropelvic dispropor tion Diminished size of lower pole right renal nonobstructing calculus and resolutio n of right ureterovesical junction calculus since 12/05/2019
[2023-04-22] MEDS: BELLADONNA ALK/PHENOB ELIX 10 ML, MAG HYDROX/ALUMINUM HYD/SIMETH 30 ML, LIDOCAINE HCL 2... PO (03:14)
[2023-04-22] MEDS: ONDANSETRON INJ 4 MG/2 ML VIAL IV PUSH (03:14)
[2023-04-22 03:29] LABS: Alanine Aminotransferase 135 U/L (6-35); Albumin Level 4.6 g/dL (3.5-5.1); Alkaline Phosphatase 95 U/L (38-126); Anion Gap 7 mmol/L (8-16); Aspartate Amino Transferase 243 U/L (14-36); Bilirubin,Total 1.4 mg/dL (0.2-1.3); Blood Urea Nitrogen 18 mg/dL (7-17); Calcium 9.2 mg/dL (8.4-10.2); Carbon Dioxide 26 mmol/L (22-30); Chloride 105 mmol/L (98-107); Estimated CRCL calculation 96 ml/min; Estimated Glomerular Filt Rate > 60; Glucose 134 mg/dL (65-110); Lipase 101 U/L (23-300); Potassium 4.2 mmol/L (3.4-5.0); Sodium 138 mmol/L (137-145)
[2023-04-22 03:36] LABS: Lactic Acid Reflex 0.9 mmol/L (0.7-2.0)
[2023-04-22 03:39] LABS: Appearance Urine Cloudy (Clear); Bacteria Urine 1+ /hpf; Basophils Absolute Auto 0.1 K/mm3 (0.0-0.1); Basophils Percent Auto 0.4 % (0.2-1.2); Bilirubin Urine 1+ (Negative); Blood Urine Negative (Negative); Color Urine Dark Yellow (Yellow); Eosinophils Percent Auto 0.2 % (0-4.4); Glucose Urine UA Negative (Negative); Hematocrit 40.9 % (37.0-47.0); Hemoglobin 13.6 g/dL (12.0-15.0); Immature Granulocyte Absolute 0.04 K/mm3 (0.00-0.031); Immature Granulocyte Percent A 0.4 % (0-0.5); Ketones Urine Trace mg/dL (Negative); Leukocyte Esterase Ur Trace LEU/UL (Negative); Lymphocytes Absolute Auto 1.03 K/mm3 (0.9-3.2); Lymphocytes Percent Auto 9.2 % (18.3-44.2); Mean Corpuscular HGB Conc 33.3 g/dl (32-36); Mean Corpuscular Hemoglobin 30.5 pg (26-34); Mean Corpuscular Volume 91.7 fl (80-100); Mean Platelet Volume 10.3 fl (7.4-10.4); Monocytes Absolute Auto 0.6 K/mm3 (0.1-0.6); Monocytes Percent Auto 4.9 % (2.6-8.5); Need Manual Microscopic Reviewed; Neutrophils Absolute Auto 9.5 K/mm3 (1.3-6.7); Neutrophils Percent Auto 84.9 % (45.5-73.1); Nitrate Urine Negative (Negative); Platelet Count Result 353 k/mm3 (150-375); Protein Urine 1+ mg/dL (Negative); Red Blood Count 4.46 M/mm3 (4.2-5.4); Red Cell Distribution Width 12.5 % (11.5-14.5); Specific Grav Ur 1.032 (1.001-1.035); Squamous Epithelial Cell Urine Moderate /hpf (Few); White Blood Count 11.2 K/mm3 (4.5-10.0)
[2023-04-22 03:40] LABS: Add Urine Microscopic? YES
--- NOTE | 2023-04-22 03:43 | ED.ABDPAIN ---
HPI - Abdominal Pain General Chief Complaint: Abdominal Pain Stated Complaint: epigastric pain Time Seen by Provider: 04/22/23 02:52 History of Present Illness HPI narrative: 32-year-old female presented the emergency department for evaluation of epigastric pain that radiated to her back. Patient denies any prior history of gastritis, pancreatitis or cholecystitis. Patient does have history of kidney stones and is status with similar pain but different location. Patient reports she woke up at approximately 11 PM and was unable to get back to sleep due to the epigastric pain. Patient did have some associated nausea without vomiting. Related Data Home Medications Medication Instructions Recorded Confirmed drospirenone (contraceptive) 4 mg 4 mg PO DAILY 04/22/23 04/22/23 (28) tablet (Slynd) semaglutide (weight loss) 2.4 2.4 mg subcut WEEKLY 04/22/23 04/22/23 mg/0.75 mL subcutaneous pen injector (Wegovy) Allergies Allergy/AdvReac Type Severity Reaction Status Date / Time No Known Allergies Allergy Verified 02/03/20 14:27 Review of Systems Review of Systems: All systems reviewed & are unremarkable except as noted in HPI and below PMFSH Past Medical History Medical History (Updated 04/22/23 @ 19:49 by Manoj Kebede MD) Anxiety Kidney stones Morbid obesity Surgical History Surgical History (Updated 04/22/23 @ 12:44 by Naren Bentley DO) History of lithotripsy Previous section Family History Family History (Updated 04/22/23 @ 12:43 by Naren Bentley DO) Mother Gallbladder disease Social History Social History Smoking status: Never smoker Second hand tobacco smoke exposure: No Alcohol intake: never Substance use: never Lack of Transportation: No Lack of Food: Never True Current Housing: I Do Not Have Housing Concerned About Future Housing: No Difficulty Paying Gas/Electric Bills: No Difficulty Paying for Meds: No Currently Unemployed: No Education: Associate Degree Difficulty w/ Childcare or Family Care: No Gender identity (if verbalized by the patient): Female Spiritual care concerns: No Exam Narrative: APPEARANCE: Well appearing, no pain, no distress, well-nourished. HEAD: normocephalic, atraumatic. EYES: PERRLA/EOMI, conjunctivae clear. NOSE: Normal no drainage NECK: Supple. No adenopathy, no masses. RESPIRATORY: Airway patent, respirations nonlabored. Clear to auscultation bilaterally, no rales, rhonchi, wheezing. CARDIOVASCULAR: Regular rate and rhythm without murmurs rubs or gallops. ABDOMINAL: Soft, nondistended, normal bowel sounds epigastric tenderness to palpation, no CVA tenderness to palpation MUSCULOSKELETAL: Moves all extremities. Strength/ROM intact, No edema, No calf tenderness. NEURO: Alert. Cranial nerves II through XII intact. Grossly intact SKIN: Warm, dry. Normal Color Course Course Emergency Course: 32-year-old female presented the ED for evaluation of epigastric abdominal pain. Patient was afebrile with no leukocytosis. Patient does have a white blood cell count 11.2 with a normal hemoglobin. Patient did have mild elevation of her T. bili AST and ALT elevation in alk phos or lipase. UA was positive for leukoesterase and red and white blood cells. Urine culture was ordered. Patient was treated with a GI cocktail for epigastric pain and did report significant improvement with the GI cocktail. CT ultrasound is being ordered to evaluate for evidence of cholecystitis. CT scan did show evidence of acute cholecystitis. Case was discussed with surgery and patient was admitted to surgery as primary. Patient was updated on the results of the CT scan and plan for admission and evaluation by surgery. MRCP was ordered. Vital Signs Vital signs: Vital Signs Temperature 98.6 F 04/22/23 02:53 Pulse Rate 83 04/22/23 02:53 Respiratory Rate 18
[2023-04-22] MEDS: SODIUM CHLORIDE 0.9% IV 1,000 ML 125 ML IV CONT (07:14)
--- NOTE | 2023-04-22 10:01 | ADMGEN ---
This patient, Shilpa Sun, was admitted to 2 Medical Room 251-01. Patient/family oriented to hospital policies and general routines including ID bracelet, bed and alarms, visiting hours, pain management, procedures, bathroom and other care routines, personal items, smoking policy, room service/diet, and visiting hours. Information on how to activate the Rapid Response Team has been discussed. Patient/Family are encouraged to report perceived risks to care and to ask questions if they do not understand what they are told or what they should do.
--- NOTE | 2023-04-22 12:39 | PM.IMHP ---
H&P: HPI History of Present Illness Date/Time: 04/22/23 12:39 Chief Complaint: Epigastric abdominal pain Narrative: This is a 32-year-old woman who presented to the emergency department this morning with epigastric abdominal pain that awoke her from sleep around 11:00 p.m. last night. She had eaten left over chicken and dumplings last night for dinner but had not had symptoms like this after eating this the night before. She has never experienced any symptoms like this in past. The patient has been on Wegovy for weight loss and would occasionally experience some abdominal cramping but was attributing this to her medication. She was experiencing some nausea and vomiting last night but denied any change in bowel habits. Her urine has become very dark tea-colored, she denies any jaundice. Her pain has improved somewhat since presenting to the emergency department, but she does feel some pain building back up. Review of Systems Review of Systems: All systems reviewed & are unremarkable except as noted in HPI and below Constitutional: Constitutional: Reports as per HPI Eyes: Eyes: Denies change in vision ENT: Denies hearing loss, Denies neck pain and Denies sore throat Cardiovascular: Cardiovascular: Denies chest pain and Denies dyspnea Respiratory: Respiratory: Denies cough, Denies dyspnea and Denies wheezing Gastrointestinal: Gastrointestinal: Reports as per HPI Genitourinary: Genitourinary: Denies hematuria, Denies dysuria and Reports other (Dark urine) Musculoskeletal: Musculoskeletal: Denies arthralgias, Denies joint swelling and Denies neck pain Allergic/Immunologic: Allergic/Immunologic: Denies wheezing [facility] Past Medical History Medical History (Updated 04/22/23 @ 12:45 by Naren Bentley DO) Anxiety Kidney stones Morbid obesity Surgical History Surgical History (Updated 04/22/23 @ 12:44 by Naren Bentley DO) History of lithotripsy Previous section Family History Family History (Updated 04/22/23 @ 12:43 by Naren Bentley DO) Mother Gallbladder disease Social History Social History Smoking status: Never smoker Second hand tobacco smoke exposure: No Alcohol intake: never Substance use: never Lack of Transportation: No Lack of Food: Never True Current Housing: I Do Not Have Housing Concerned About Future Housing: No Difficulty Paying Gas/Electric Bills: No Difficulty Paying for Meds: No Currently Unemployed: No Education: Associate Degree Difficulty w/ Childcare or Family Care: No Gender identity (if verbalized by the patient): Female Spiritual care concerns: No Meds Home Medications and Allergies Home Medications Medication Instructions Recorded Confirmed Type drospirenone (contraceptive) 4 mg 4 mg PO DAILY 04/22/23 04/22/23 History (28) tablet (Slynd) semaglutide (weight loss) 2.4 2.4 mg subcut WEEKLY 04/22/23 04/22/23 History mg/0.75 mL subcutaneous pen injector (Wegovy) Allergies Allergy/AdvReac Type Severity Reaction Status Date / Time No Known Allergies Allergy Verified 02/03/20 14:27 Vital Signs Vital Signs - 24 hr 04/22/23 02:53 04/22/23 05:00 04/22/23 06:39 Temperature 37.0 C Pulse Rate 83 95 92 Respiratory Rate 18 15 15 Blood Pressure 126/82 116/78 110/64 Pulse Oximetry 100 98 98 Oxygen Delivery Room Air 04/22/23 07:14 04/22/23 08:44 04/22/23 08:55 Temperature 36.4 C Pulse Rate 90 74 79 Respiratory Rate 15 15 16 Blood Pressure 94/56 L 114/80 123/79 Pulse Oximetry 99 100 100 Oxygen Delivery 04/22/23 10:30 Temperature Pulse Rate Respiratory Rate Blood Pressure Pulse Oximetry Oxygen Delivery Room Air Exam Const: General: alert; No acute distress Orientation/consciousness: patient oriented x3 Limitations: no limitations HENMT: Head: normocephalic and atraumatic Ears: hearing grossly normal bila
[2023-04-23 05:45] LABS: Hematocrit 38.9 % (37.0-47.0); Hemoglobin 12.5 g/dL (12.0-15.0); Mean Corpuscular HGB Conc 32.1 g/dl (32-36); Mean Corpuscular Hemoglobin 30.6 pg (26-34); Mean Corpuscular Volume 95.3 fl (80-100); Mean Platelet Volume 10.1 fl (7.4-10.4); Platelet Count Result 302 k/mm3 (150-375); Red Blood Count 4.08 M/mm3 (4.2-5.4); Red Cell Distribution Width 12.6 % (11.5-14.5); White Blood Count 5.4 K/mm3 (4.5-10.0)
[2023-04-23 05:56] LABS: Alanine Aminotransferase 257 U/L (6-35); Albumin Level 3.8 g/dL (3.5-5.1); Alkaline Phosphatase 104 U/L (38-126); Anion Gap 5 mmol/L (8-16); Aspartate Amino Transferase 143 U/L (14-36); Bilirubin,Total 0.9 mg/dL (0.2-1.3); Blood Urea Nitrogen 10 mg/dL (7-17); Calcium 8.7 mg/dL (8.4-10.2); Carbon Dioxide 28 mmol/L (22-30); Chloride 105 mmol/L (98-107); Estimated CRCL calculation 96 ml/min; Estimated Glomerular Filt Rate > 60; Glucose 90 mg/dL (65-110); Potassium 3.4 mmol/L (3.4-5.0); Sodium 138 mmol/L (137-145)
[2023-04-23 06:00] VITALS: BP 104/53; PULSE 85; RESP 20; TEMP 37.1; O2SAT 98
--- NOTE | 2023-04-23 12:38 | PM.PNGS ---
Progress Note: A&P Assessment and Plan (1) Acute cholecystitis: Code(s): K81.0 - Acute cholecystitis Status: Acute Assessment and Plan: Patient improving somewhat today. Discussed risks of recurrent or persistent cholecystitis if surgery is delayed, and patient would like to proceed with surgery during this admission. Will repeat labs tomorrow morning and if no signficant change, will discuss proceeding with laparoscopic cholecystectomy with cholangiogram, possible open. NPO after midnight for possible surgery. (2) Abnormal findings on imaging of biliary tract: Code(s): R93.2 - Abnormal findings on diagnostic imaging of liver and biliary tract Status: Acute (3) Elevated liver enzymes: Code(s): R74.8 - Abnormal levels of other serum enzymes Status: Acute Subjective Subjective Date/Time Seen: 04/23/23 12:38 Interval history: Pain improving. No fevers. Tolerating low fat diet. Urine still dark, but not tea colored like it was. Exam Const: General: alert; No acute distress Orientation/consciousness: patient oriented x3 Limitations: no limitations Resp: Effort & Inspection: normal respiratory effort and able to speak in complete sentences Auscultation: clear to auscultation bilaterally Percussion: percussion normal Cardio: Jugular venous distension: no JVD Rate: regular rate Rhythm: regular rhythm Heart sounds: S1 normal heart sound present and S2 normal heart sound present Peripheral pulses: Peripheral pulses 2+ throughout GI: Inspection: normal to inspection GI Palp: Yes Soft to palpation, Yes Tenderness to palpation present (GI) (Mild epigastric and right upper quadrant tenderness), No Guarding due to palpation present (GI), No Hernia present and No Rebound tenderness present Percussion: Yes normal to percussion Auscultation: normal bowel sounds Objective Data Vital Signs Vital Signs: Vital Signs - 24 hr 04/22/23 14:00 04/22/23 20:00 04/22/23 22:00 Temperature 36.5 C 36.3 C L Pulse Rate 85 81 Respiratory Rate 16 20 Blood Pressure 120/66 110/76 Pulse Oximetry 99 99 Oxygen Delivery Room Air 04/22/23 21:45 04/23/23 06:00 04/23/23 09:45 Temperature 37.1 C Pulse Rate 85 Respiratory Rate 20 Blood Pressure 104/53 L Pulse Oximetry 99 98 Oxygen Delivery Room Air Room Air Intake/Output Intake/Output: Intake & Output 04/20/23 04/21/23 04/22/23 04/23/23 23:59 23:59 23:59 23:59 Intake Total 670 710 Balance 670 710 Meds/Results Medications: Active Medications Generic Name Dose Route Start Last Admin Trade Name Freq PRN Reason Stop Dose Admin Acetaminophen 1,000 mg 04/22/23 12:49 Acetaminophen 500 Mg Tablet PO Q6H PRN Mild Pain (1-3) or Fever Hydrocodone Bitart/Acetaminophen 2 tab 04/22/23 07:22 Hydrocodone/Acetaminophen (*Crx) 5-325 Mg Tablet PO Q4H PRN Pain Rated 7-10 Hydrocodone Bitart/Acetaminophen 1 tab 04/22/23 12:49 Hydrocodone/Acetaminophen (*Crx) 5-325 Mg Tablet PO Q4H PRN Pain Rated 4-6 Ondansetron HCl 4 mg 04/22/23 07:22 Ondansetron Inj 4 Mg/2 Ml Vial IV PUSH Q4H PRN Nausea Radiology Results: ITS Impressions Abdomen/Pelvis CT 04/22/23 06:46 IMPRESSION: Gallbladder wall thickening/edema suggesting acute cholecystitis Common bile duct dilatation, measuring up to 8.3 mm. Consider possible choledocholithiasis. Chronic right prominent hydronephrosis, possibly due to ureteropelvic disproportion Diminished size of lower pole right renal nonobstructing calculus and resolution of right ureterovesical junction calculus since 12/05/2019 MRCP 04/22/23 14:44 IMPRESSION: 1. Mildly dilated common duct. No choledocholithiasis. 2. Cholelithiasis. Gallbladder wall thickening is suspicious for acute cholecystitis. 3. Chronic moderate right hydronephrosis. Labs Labs: Laboratory Results - last 24 hr 04/23/23 05:13 WBC 5.4 RBC
[2023-04-23] MEDS: ACETAMINOPHEN 500 MG TABLET 1000 MG PO (13:02)
[2023-04-23 14:00] VITALS: BP 110/74; PULSE 87; RESP 16; TEMP 36.6; O2SAT 100
[2023-04-23 23:05] VITALS: BP 111/65; PULSE 89; RESP 16; TEMP 36.8; O2SAT 99
[2023-04-24] VITALS (16 sets, daily range): BP systolic 101–128; BP diastolic 57–86; PULSE 72–110; RESP 13–20; TEMP 36.2–36.8; O2SAT 93–100
[2023-04-24 06:03] LABS: Hematocrit 38.2 % (37.0-47.0); Hemoglobin 12.5 g/dL (12.0-15.0); Mean Corpuscular HGB Conc 32.7 g/dl (32-36); Mean Corpuscular Hemoglobin 30.6 pg (26-34); Mean Corpuscular Volume 93.6 fl (80-100); Mean Platelet Volume 9.8 fl (7.4-10.4); Platelet Count Result 307 k/mm3 (150-375); Red Blood Count 4.08 M/mm3 (4.2-5.4); Red Cell Distribution Width 12.5 % (11.5-14.5); White Blood Count 5.8 K/mm3 (4.5-10.0)
[2023-04-24 06:15] LABS: Alanine Aminotransferase 177 U/L (6-35); Albumin Level 3.8 g/dL (3.5-5.1); Alkaline Phosphatase 102 U/L (38-126); Anion Gap 5 mmol/L (8-16); Aspartate Amino Transferase 57 U/L (14-36); Bilirubin,Total 0.5 mg/dL (0.2-1.3); Blood Urea Nitrogen 12 mg/dL (7-17); Calcium 8.7 mg/dL (8.4-10.2); Carbon Dioxide 26 mmol/L (22-30); Chloride 106 mmol/L (98-107); Estimated CRCL calculation 109 ml/min; Estimated Glomerular Filt Rate > 60; Glucose 102 mg/dL (65-110); Lipase 137 U/L (23-300); Potassium 3.2 mmol/L (3.4-5.0); Sodium 137 mmol/L (137-145)
[2023-04-24] MEDS: POTASSIUM CHLORIDE INJ 40 MEQ in SODIUM CHLORIDE 0.9% IV 500 ML 130 MEQ IVPB (09:41)
--- NOTE | 2023-04-24 12:55 | PM.PNGS ---
Progress Note: A&P Assessment and Plan (1) Acute cholecystitis: Code(s): K81.0 - Acute cholecystitis Status: Acute Assessment and Plan: No significant changes to patient's morning labs. Liver enzymes are continuing to trend down. I have recommended proceeding with laparoscopic cholecystectomy with cholangiogram, possible open. I discussed the procedure, risks, benefits, and alternatives. Questions were answered. (2) Abnormal findings on imaging of biliary tract: Code(s): R93.2 - Abnormal findings on diagnostic imaging of liver and biliary tract Status: Acute (3) Elevated liver enzymes: Code(s): R74.8 - Abnormal levels of other serum enzymes Status: Acute Subjective Subjective Date/Time Seen: 04/24/23 12:55 Interval history: Patient doing well. Minimal pain. Wants to proceed with surgery today. Exam GI: Inspection: normal to inspection GI Palp: Yes Soft to palpation, Yes Tenderness to palpation present (GI) (Mild epigastric and right upper quadrant tenderness), No Guarding due to palpation present (GI), No Hernia present and No Rebound tenderness present Percussion: Yes normal to percussion Auscultation: normal bowel sounds Objective Data Vital Signs Vital Signs: Vital Signs - 24 hr 04/23/23 14:00 04/23/23 23:05 04/24/23 05:13 Temperature 36.6 C 36.8 C 36.8 C Pulse Rate 87 89 88 Respiratory Rate 16 16 16 Blood Pressure 110/74 111/65 101/57 L Pulse Oximetry 100 99 97 Oxygen Delivery 04/24/23 08:00 Temperature Pulse Rate 88 Respiratory Rate 16 Blood Pressure Pulse Oximetry 97 Oxygen Delivery Room Air Intake/Output Intake/Output: Intake & Output 04/21/23 04/22/23 04/23/23 04/24/23 23:59 23:59 23:59 23:59 Intake Total 670 1704 450 Balance 670 1704 450 Meds/Results Medications: Active Medications Generic Name Dose Route Start Last Admin Trade Name Freq PRN Reason Stop Dose Admin Acetaminophen 1,000 mg 04/22/23 12:49 04/23/23 13:02 Acetaminophen 500 Mg Tablet PO 1,000 mg Q6H PRN Administration Mild Pain (1-3) or Fever Hydrocodone Bitart/Acetaminophen 2 tab 04/22/23 07:22 Hydrocodone/Acetaminophen (*Crx) 5-325 Mg Tablet PO Q4H PRN Pain Rated 7-10 Hydrocodone Bitart/Acetaminophen 1 tab 04/22/23 12:49 Hydrocodone/Acetaminophen (*Crx) 5-325 Mg Tablet PO Q4H PRN Pain Rated 4-6 Ondansetron HCl 4 mg 04/22/23 07:22 Ondansetron Inj 4 Mg/2 Ml Vial IV PUSH Q4H PRN Nausea Radiology Results: ITS Impressions Abdomen/Pelvis CT 04/22/23 06:46 IMPRESSION: Gallbladder wall thickening/edema suggesting acute cholecystitis Common bile duct dilatation, measuring up to 8.3 mm. Consider possible choledocholithiasis. Chronic right prominent hydronephrosis, possibly due to ureteropelvic disproportion Diminished size of lower pole right renal nonobstructing calculus and resolution of right ureterovesical junction calculus since 12/05/2019 MRCP 04/22/23 14:44 IMPRESSION: 1. Mildly dilated common duct. No choledocholithiasis. 2. Cholelithiasis. Gallbladder wall thickening is suspicious for acute cholecystitis. 3. Chronic moderate right hydronephrosis. Labs Labs: Laboratory Results - last 24 hr 04/24/23 05:19 WBC 5.8 RBC 4.08 L Hgb 12.5 Hct 38.2 MCV 93.6 MCH 30.6 MCHC 32.7 RDW 12.5 Plt Count 307 MPV 9.8 Sodium 137 Potassium 3.2 L Chloride 106 Carbon Dioxide 26 Anion Gap 5 L BUN 12 Creatinine 0.70 Estim Creat Clear Calc 109 Estimated GFR > 60 Glucose 102 Calcium 8.7 Total Bilirubin 0.5 AST 57 H ALT 177 H Alkaline Phosphatase 102 Total Protein 7.0 Albumin 3.8 Lipase 137 Blood Type O Positive Antibody Screen Negative
[2023-04-24] MEDS: LACTATED RINGERS 1,000 ML 30 ML IV CONT (13:00)
--- NOTE | 2023-04-24 13:03 | WPDHPUPDATE1 ---
History and Physical Update Update Date/Time: 04/24/23 13:03 History and Physical has been reviewed, including an updated exam of the patient. There are NO changes in the patient's condition. Risks, benefits, and alternatives have been discussed and questions answered. Patient agrees to proceed with procedure.
--- NOTE | 2023-04-24 13:07 | WPDANESEPPF ---
Anes - Initial Pre Proc Eval Procedure: Operation Date: 04/24/23 14:00 Proposed Procedures p Laparoscopic Cholecystectomy - Naren Bentley DO Date/Time: 04/24/23 13:07 Surgeon: Naren Bentley DO Pre Op Diagnosis: Acute Cholecystitis, Abdominal Pain Patient Data Age: 32 Gender: F Height: 1.63 m Weight: 92.53 kg Last Vital Signs Temp 36.6 C 04/24/23 12:53 Pulse 89 04/24/23 12:53 Resp 14 04/24/23 12:53 BP 105/65 04/24/23 12:53 Pulse Ox 99 04/24/23 12:53 O2 Del Method Room Air 04/24/23 12:53 Allergies Allergy/AdvReac Type Severity Reaction Status Date / Time No Known Allergies Allergy Verified 02/03/20 14:27 Home Medications Medication Instructions Recorded Confirmed Type drospirenone (contraceptive) 4 mg 4 mg PO DAILY 04/22/23 04/22/23 History (28) tablet (Slynd) semaglutide (weight loss) 2.4 2.4 mg subcut WEEKLY 04/22/23 04/22/23 History mg/0.75 mL subcutaneous pen injector (Wegovy) Laboratory Tests 04/24/23 05:19 WBC 5.8 K/mm3 (4.5-10.0) RBC 4.08 L M/mm3 (4.2-5.4) Hgb 12.5 g/dL (12.0-15.0) Hct 38.2 % (37.0-47.0) MCV 93.6 fl (80-100) MCH 30.6 pg (26-34) MCHC 32.7 g/dl (32-36) RDW 12.5 % (11.5-14.5) Plt Count 307 k/mm3 (150-375) MPV 9.8 fl (7.4-10.4) Sodium 137 mmol/L (137-145) Potassium 3.2 L mmol/L (3.4-5.0) Chloride 106 mmol/L (98-107) Carbon Dioxide 26 mmol/L (22-30) Anion Gap 5 L mmol/L (8-16) BUN 12 mg/dL (7-17) Creatinine 0.70 mg/dL (0.7-1.0) Estim Creat Clear Calc 109 ml/min Estimated GFR > 60 (59 - ) Glucose 102 mg/dL (65-110) Calcium 8.7 mg/dL (8.4-10.2) Total Bilirubin 0.5 mg/dL (0.2-1.3) AST 57 H U/L (14-36) ALT 177 H U/L (6-35) Alkaline Phosphatase 102 U/L (38-126) Total Protein 7.0 g/dL (6.3-8.2) Albumin 3.8 g/dL (3.5-5.1) Lipase 137 U/L (23-300) Blood Type O Positive Antibody Screen Negative Patient hx anesthesia problems: none Family hx anesthesia problems: none Results Review: All pre-operative results and documents have been reviewed as part of the pre-operative evaluation. [facility] Past Medical History Medical History Anxiety Kidney stones Surgical History Surgical History History of lithotripsy Previous section Family History Family History Mother Gallbladder disease Social History Social History Smoking status: Never smoker Second hand tobacco smoke exposure: No Alcohol intake: never Substance use: never Lack of Transportation: No Lack of Food: Never True Current Housing: I Do Not Have Housing Concerned About Future Housing: No Difficulty Paying Gas/Electric Bills: No Difficulty Paying for Meds: No Currently Unemployed: No Education: Associate Degree Difficulty w/ Childcare or Family Care: No Gender identity (if verbalized by the patient): Female Spiritual care concerns: No Anes - Eval Final PreProcedure Day of Procedure 04/24/23 13:07 Patient weight: obese Heart: regular rate and rhythm Lungs: clear to auscultation Airway: Mallampati scale class II Neurological: alert and oriented Last oral intake: >/= 8 hours ASA classification: II Emergent: no Anesthetic plan: proceed Anesthesia type and monitoring: general ETT and standard monitoring Results Review: All pre-operative results and documents have been reviewed as part of the pre-operative evaluation. Informed Consent: The patient's anesthetic plan and its attendant risks and benefits were discussed with the patient/family/POA. Questions were solicited and answers provided to the satisfaction of the patient/fa
[2023-04-24] MEDS: ceFAZolin 2 GM/D5W 50 ML 2 GM/50 ML BAG IVPB (13:45)
[2023-04-24] MEDS: BUPIVACAINE/EPINEPHRINE 0.5% 50 ML VIAL 30 ML INFILTRATE (13:51)
--- NOTE | 2023-04-24 14:21 | W.PM.PROC2 ---
Procedure Note - Detailed Date of Procedure 04/24/23 Pre-op Diagnosis Acute Cholecystitis, elevated liver enzymes Post-op Diagnosis Other (Distal CBD obstruction) Procedure Performed Laparoscopic cholecystectomy with intraoperative cholangiogram Surgeon Naren Bentley, DO Anesthesia General and Local (0.5% bupivacaine) Indications This is a 32-year-old woman presented to emergency department with epigastric and right upper quadrant pain that started acutely. She was noted to have a slightly elevated white blood count and elevated liver enzymes. CT in the emergency department showed evidence of acute cholecystitis and a dilated common bile duct. She was admitted for further treatment. MRCP showed a slightly dilated common bile duct but no definite choledocholithiasis. Discussions were made with the patient about treatment options and decision was made to proceed with laparoscopic cholecystectomy with intraoperative cholangiogram. Findings Laparoscopic cholecystectomy with cholangiogram was performed. The gallbladder was slightly dilated and contained numerous tiny gallstones. The cystic duct appeared to taper down to normal size. There did not appear to be any significant pericholecystic adhesions and only mild gallbladder wall thickening. Intraoperative cholangiogram was obtained and contrast was not visualized entering into the duodenum and the common bile duct appeared slightly dilated suggestive of a distal obstruction. The gallbladder was removed and sent to the lab for pathology. Description of Procedure Procedure as well as risks, benefits, and alternatives were discussed with patient. Written consent was obtained and placed in chart prior to procedure. The patient was brought back to surgical suite. Patient was placed in supine position on operating table. Time-out was done to confirm patient and procedure. Patient was then intubated by the anesthesia department. Abdomen was prepped and draped in sterile fashion using chlorhexidine prep. 0.5% bupivacaine with epinephrine was infiltrated at each site of incision. A 5 millimeter incision was made near the umbilicus, and a 5 millimeter Optiview trocar was advanced through the abdominal layers under direct visualization. Once inside the abdominal cavity, carbon dioxide was insufflated to create a pneumoperitoneum. The camera was inserted and the abdomen was inspected. No immediate abnormalities were identified. The patient was placed in reverse Trendelenburg position and rotated slightly to the left. An 11 millimeter incision was made in the subxiphoid region, and an 11 millimeter trocar was inserted under direct visualization. Two 5 millimeter incisions were made in the right upper quadrant, and two 5 millimeter trocars were inserted under direct visualization. The gallbladder was identified and grasped at the fundus and retracted superiorly. It was then grasped at the infundibulum retracted laterally. Careful dissection around the neck of the gallbladder was performed using blunt dissection with a [place] grasper and hook electrocautery. The cystic duct was identified, and a window was created behind it. The cystic artery was also identified and a window was created behind it. The critical view of safety was identified, visualizing the cystic duct running directly into the neck of the gallbladder, and the cystic artery running directly into the wall of the gallbladder. A 5 millimeter clip bullet slugs inspector was then used to place 2 clips proximally and 1 clip distally on the cystic artery. It was then transected using endoscopic scissors. The Bah clamp was placed across the neck of the gallbladder and the Bah cholangiocatheter was then advanced to the distal neck of the gallbladder. Catheter flushed with saline with ease. The patient was then flattened out of bed and fluoroscopy was used with Omnipaque contrast to obtain a cholangiogram. There was some resistance as the contrast was instill
[2023-04-24] MEDS: fentaNYL CITRATE INJ (*CRX) 100 MCG/2 ML VIAL 25 MCG IV PUSH ×4 (15:05→15:37)
[2023-04-24] MEDS: HYDROcodone/acetaminophen (*CRX) 7.5-325 MG TABLET 1 TAB PO ×2 (17:15→21:11)
[2023-04-25] VITALS (14 sets, daily range): BP systolic 101–127; BP diastolic 63–88; PULSE 78–104; RESP 12–20; TEMP 36.1–36.8; O2SAT 97–100
[2023-04-25 05:54] LABS: Hematocrit 41.4 % (37.0-47.0); Hemoglobin 13.8 g/dL (12.0-15.0); Mean Corpuscular HGB Conc 33.3 g/dl (32-36); Mean Corpuscular Hemoglobin 30.7 pg (26-34); Mean Corpuscular Volume 92.2 fl (80-100); Mean Platelet Volume 9.6 fl (7.4-10.4); Platelet Count Result 357 k/mm3 (150-375); Red Blood Count 4.49 M/mm3 (4.2-5.4); Red Cell Distribution Width 11.9 % (11.5-14.5); White Blood Count 10.3 K/mm3 (4.5-10.0)
[2023-04-25 06:11] LABS: Potassium 3.8 mmol/L (3.4-5.0)
[2023-04-25 06:16] LABS: Alanine Aminotransferase 148 U/L (6-35); Albumin Level 4.1 g/dL (3.5-5.1); Alkaline Phosphatase 105 U/L (38-126); Anion Gap 9 mmol/L (8-16); Aspartate Amino Transferase 49 U/L (14-36); Bilirubin,Total 0.7 mg/dL (0.2-1.3); Blood Urea Nitrogen 7 mg/dL (7-17); Calcium 9.3 mg/dL (8.4-10.2); Carbon Dioxide 23 mmol/L (22-30); Chloride 105 mmol/L (98-107); Estimated CRCL calculation 125 ml/min; Estimated Glomerular Filt Rate > 60; Glucose 107 mg/dL (65-110); Sodium 137 mmol/L (137-145)
[2023-04-25] MEDS: HYDROcodone/acetaminophen (*CRX) 5-325 MG TABLET 1 TAB PO ×2 (06:37→17:08)
--- NOTE | 2023-04-25 07:53 | WPDGICN ---
Assessment and Plan Assessment and plan (1) Abnormal findings on imaging of biliary tract: Code(s): R93.2 - Abnormal findings on diagnostic imaging of liver and biliary tract Status: Acute Assessment and Plan: CT scan showed: IMPRESSION:? Gallbladder wall thickening/edema suggesting acute cholecystitis Common bile duct dilatation, measuring up to 8.3 mm. Consider possible choledocholithiasis. MRCP was normal. Intraoperative cholangiogram revealed a dilated common bile duct and failure of contrast into the duodenum consistent with occlusion at the [facility]. (2) Elevated liver enzymes: Code(s): R74.8 - Abnormal levels of other serum enzymes Status: Acute Assessment and Plan: Though LFTs were elevated on admission they are decreasing. ALT peaked at 2:57 a.m. April 23 and today is 148. Bilirubin is actually normal. (3) Acute cholecystitis: Code(s): K81.0 - Acute cholecystitis Status: Acute Assessment and Plan: Status post lap choly yesterday. Multiple gallstones were present in the gallbladder which was not particularly thickened. Plan Suspected choledocholithiasis. Will perform ERCP today. I explained the patient that there is risk of pancreatitis or bleeding or perforation. She understands that she may have stones or sludge in distal common bile duct. I explained that even if it has passed we would perform a sphincterotomy to prevent any further calculi or stone material from occluding the distal common bile duct. GI Consult Note Consult date/time: 04/25/23 07:53 HPI: Shilpa Sun is a 32 year old female who developed epigastric pain [place] night. It radiated towards her back. As the hours went by the pain was worse. She tried a heating pad and try taking a bath without relief. She finally came to the emergency room and was found to have acute cholecystitis. Her liver enzymes were elevated and it was felt she may have choledocholithiasis as well. An MRCP however failed to show any evidence of common bile duct stones. She went to surgery yesterday and her gallbladder was removed. There were multiple tiny stones. Intraoperative cholangiogram revealed no obvious stones in the common bile duct however the contrast did not enter the duodenum indicating obstruction at the end of the bile duct. She has noticed that her urine which was quite dark admission has become clear. [facility], [facility] Past Medical History Medical History Anxiety Kidney stones Surgical History Surgical History History of lithotripsy Previous section Family History Family History Mother Gallbladder disease Social History Social History Smoking status: Never smoker Second hand tobacco smoke exposure: No Alcohol intake: never Substance use: never Lack of Transportation: No Lack of Food: Never True Current Housing: I Do Not Have Housing Concerned About Future Housing: No Difficulty Paying Gas/Electric Bills: No Difficulty Paying for Meds: No Currently Unemployed: No Education: Associate Degree Difficulty w/ Childcare or Family Care: No Gender identity (if verbalized by the patient): Female Spiritual care concerns: No Meds Home Medications and Allergies Home Medications Medication Instructions Recorded Confirmed Type drospirenone (contraceptive) 4 mg 4 mg PO DAILY 04/22/23 04/22/23 History (28) tablet (Slynd) semaglutide (weight loss) 2.4 2.4 mg subcut WEEKLY 04/22/23 04/22/23 History mg/0.75 mL subcutaneous pen injector (Wegovy) Allergies Allergy/AdvReac Type Severity Reaction Status Date / Time No Known Allergies Allergy Verified 04/24/23 13:25 Vital Signs Vital Signs - 24 hr 04/24/23 08:00 04/24/23 12:53
--- NOTE | 2023-04-25 09:47 | WPDGICN ---
Assessment and Plan Assessment and plan (1) Abnormal findings on imaging of biliary tract: Code(s): R93.2 - Abnormal findings on diagnostic imaging of liver and biliary tract Status: Acute Assessment and Plan: IMPRESSION:? Gallbladder wall thickening/edema suggesting acute cholecystitis Common bile duct dilatation, measuring up to 8.3 mm. Consider possible choledocholithiasis. GI Consult Note Consult date/time: 04/25/23 09:47 HPI: Shilpa Sun is a 32 year old female who presented to the emergency room Monday morning. She had been awoken from sleep about 11:00 p.m. the night before with pain in the epigastric area that became increasingly severe and radiated to the back. She does not recall having had anything like this in the past. She has occasionally had some upset stomach but this she attributes to being on why go be which she started for weight loss. She has no history of liver disease jaundice or hepatitis. She did notice that her urine was dark colored. Actually is a little clearer today. She had a cholecystectomy yesterday and was found to have multiple tiny gallstones in the gallbladder that was slightly distended but the gallbladder wall was not thickened. Intraoperative cholangiogram was done that showed total occlusion at the distal duct with no contrast entering the duodenum. Her LFTs though elevated have come down somewhat although ALT which was initially 135, jumped to 257 is 148 today. [facility] Past Medical History Medical History Anxiety Kidney stones Surgical History Surgical History History of lithotripsy Previous section Family History Family History Mother Gallbladder disease Social History Social History Smoking status: Never smoker Second hand tobacco smoke exposure: No Alcohol intake: never Substance use: never Lack of Transportation: No Lack of Food: Never True Current Housing: I Do Not Have Housing Concerned About Future Housing: No Difficulty Paying Gas/Electric Bills: No Difficulty Paying for Meds: No Currently Unemployed: No Education: Associate Degree Difficulty w/ Childcare or Family Care: No Gender identity (if verbalized by the patient): Female Spiritual care concerns: No Meds Home Medications and Allergies Home Medications Medication Instructions Recorded Confirmed Type drospirenone (contraceptive) 4 mg 4 mg PO DAILY 04/22/23 04/22/23 History (28) tablet (Slynd) semaglutide (weight loss) 2.4 2.4 mg subcut WEEKLY 04/22/23 04/22/23 History mg/0.75 mL subcutaneous pen injector (Wegovy) Allergies Allergy/AdvReac Type Severity Reaction Status Date / Time No Known Allergies Allergy Verified 04/24/23 13:25 Vital Signs Vital Signs - 24 hr 04/24/23 12:53 04/24/23 14:32 04/24/23 14:45 Temperature 36.6 C 36.6 C Pulse Rate 89 110 H 95 Respiratory Rate 14 18 16 Blood Pressure 105/65 126/76 126/83 Pulse Oximetry 99 100 100 Oxygen Delivery Room Air Simple Face Mask Simple Face Mask Oxygen Flow Rate 6 6 04/24/23 14:49 04/24/23 15:00 04/24/23 15:15 Temperature Pulse Rate 95 86 Respiratory Rate 14 13 Blood Pressure 128/82 121/75 Pulse Oximetry 100 96 94 Oxygen Delivery Room Air Room Air Room Air Oxygen Flow Rate 04/24/23 15:30 04/24/23 15:50 04/24/23 16:05 Temperature 36.2 C L 36.3 C L Pulse Rate 85 88 102 H Respiratory Rate 14 16 18 Blood Pressure 122/86 115/76 118/77 Pulse Oximetry 95 93 94 Oxygen Delivery Room Air Oxygen Flow Rate 04/24/23 16:35 04/24/23 17:35 04/24/23 19:29 Temperature 36.3 C L 36.2 C L 36.4 C Pulse Rate 78 80 78 Respiratory Rate 18 18 20 Blood Pressure 119/73 111/73 113/65 Pulse Oximetry 96 97 97 Oxygen Delivery Oxyg
[2023-04-25] MEDS: LACTATED RINGERS 1,000 ML 150 ML IV CONT (10:54)
--- NOTE | 2023-04-25 11:14 | WPDANESEPPF ---
Anes - Initial Pre Proc Eval Procedure: Operation Date: 04/24/23 14:00 Proposed Procedures p Laparoscopic Cholecystectomy - Naren Bentley DO Operation Date: 04/25/23 13:15 Proposed Procedures p Endoscopic Retro Cholangiopancreatogram - Reinaldo Gaviria MD Date/Time: 04/25/23 11:14 Surgeon: Naren Bentley DO Pre Op Diagnosis: Acute Cholecystitis, Abdominal Pain Patient Data Age: 32 Gender: F Height: 1.63 m Weight: 92.53 kg Last Vital Signs Temp 97.2 F L 04/25/23 10:48 Pulse 95 04/25/23 10:48 Resp 17 04/25/23 10:48 BP 112/72 04/25/23 10:48 Pulse Ox 97 04/25/23 10:48 O2 Del Method Room Air 04/25/23 10:48 O2 Flow Rate 6 04/24/23 14:45 Allergies Allergy/AdvReac Type Severity Reaction Status Date / Time No Known Allergies Allergy Verified 04/25/23 10:46 Home Medications Medication Instructions Recorded Confirmed Type drospirenone (contraceptive) 4 mg 4 mg PO DAILY 04/22/23 04/22/23 History (28) tablet (Slynd) semaglutide (weight loss) 2.4 2.4 mg subcut WEEKLY 04/22/23 04/22/23 History mg/0.75 mL subcutaneous pen injector (Wegovy) Laboratory Tests 04/25/23 05:32 WBC 10.3 H K/mm3 (4.5-10.0) RBC 4.49 M/mm3 (4.2-5.4) Hgb 13.8 g/dL (12.0-15.0) Hct 41.4 % (37.0-47.0) MCV 92.2 fl (80-100) MCH 30.7 pg (26-34) MCHC 33.3 g/dl (32-36) RDW 11.9 % (11.5-14.5) Plt Count 357 k/mm3 (150-375) MPV 9.6 fl (7.4-10.4) Sodium 137 mmol/L (137-145) Potassium 3.8 mmol/L (3.4-5.0) Chloride 105 mmol/L (98-107) Carbon Dioxide 23 mmol/L (22-30) Anion Gap 9 mmol/L (8-16) BUN 7 D mg/dL (7-17) Creatinine 0.60 L mg/dL (0.7-1.0) Estim Creat Clear Calc 125 ml/min Estimated GFR > 60 (59 - ) Glucose 107 mg/dL (65-110) Calcium 9.3 mg/dL (8.4-10.2) Total Bilirubin 0.7 mg/dL (0.2-1.3) AST 49 H U/L (14-36) ALT 148 H U/L (6-35) Alkaline Phosphatase 105 U/L (38-126) Total Protein 8.0 g/dL (6.3-8.2) Albumin 4.1 g/dL (3.5-5.1) Patient hx anesthesia problems: none Family hx anesthesia problems: none Results Review: All pre-operative results and documents have been reviewed as part of the pre-operative evaluation. [facility] Past Medical History Medical History Anxiety Kidney stones Surgical History Surgical History History of lithotripsy Previous section Family History Family History Mother Gallbladder disease Social History Social History Smoking status: Never smoker Second hand tobacco smoke exposure: No Alcohol intake: never Substance use: never Lack of Transportation: No Lack of Food: Never True Current Housing: I Do Not Have Housing Concerned About Future Housing: No Difficulty Paying Gas/Electric Bills: No Difficulty Paying for Meds: No Currently Unemployed: No Education: Associate Degree Difficulty w/ Childcare or Family Care: No Gender identity (if verbalized by the patient): Female Spiritual care concerns: No Anes - Eval Final PreProcedure Day of Procedure 04/25/23 11:14 Patient weight: obese Heart: regular rate and rhythm Lungs: clear to auscultation Airway: Mallampati scale class II Neurological: alert and oriented Last oral intake: >/= 8 hours ASA classification: II Emergent: no Anesthetic plan: proceed Anesthesia type and monitoring: general ETT and standard monitoring Results Review: All pre-operative results and documents have been reviewed as part of the pre-operative evaluation. Informed Consent: The patient's anesthetic plan and its attendant risks and benefits were discussed with the patient/family/POA. Questions were brad
[2023-04-25] MEDS: INDOMETHACIN 50 MG SUPP.RECT 100 MG RECTAL (12:15)
[2023-04-26 05:15] VITALS: BP 116/55; PULSE 84; RESP 12; TEMP 36.1; O2SAT 99
[2023-04-26] MEDS: HYDROcodone/acetaminophen (*CRX) 5-325 MG TABLET 1 TAB PO (07:40)
[2023-04-26 08:00] VITALS: PULSE 84; RESP 12; O2SAT 99
--- NOTE | 2023-04-26 10:40 | PM.DS ---
DS: Admitting Diagnosis Discharge Date 04/26/23 Admitting Diagnosis Acute cholecystitis Elevated liver enzymes Abnormal findings of imaging of biliary tract DS: Discharge Diagnosis Discharge Diagnosis (1) Acute cholecystitis: Code(s): K81.0 - Acute cholecystitis Status: Acute (2) Elevated liver enzymes: Code(s): R74.8 - Abnormal levels of other serum enzymes Status: Acute (3) Choledocholithiasis: Code(s): K80.50 - Calculus of bile duct without cholangitis or cholecystitis without obstruction Status: Acute DS: Summary Hospital Course Reason for hospitalization: This is a 32-year-old woman who presented to the ER 4 days ago with epigastric abdominal pain. She additionally reported dark tea-colored urine. Workup showed transaminitis and CT evidence of acute cholecystitis and common bile duct dilatation. She was admitted for surgical evaluation. Hospital Course: Antibiotics were held off as it appeared inflammatory rather than an infectious etiology. MRCP ordered to assess for choledocholithiasis, which was negative. LFTs were trending down and her total bilirubin normalized. Decision was made to proceed with surgery. She underwent a laparoscopic cholecystectomy with intraoperative cholangiogram on 04/24/[address] Bentley. Her cholangiogram showed a dilated common duct without passage of contrast to the duodenum, suggesting possible choledocholithiasis. GI was then consulted and performed an ERCP on 04/25/2023 with successful removal of a clump of sludge and gritty material. Her diet was slowly advanced following ERCP. She has been tolerating her diet well. She has some incisional soreness, but no significant abdominal pain. She is tolerating activity and stable for discharge this morning. Status at Discharge Functional status at discharge: independent ambulation Overall status at discharge: patient is progressing back to baseline Time Spent with Patient Time attestation: Total time spent providing and/or coordinating discharge services: Exam Const: General: comfortable, no acute distress and awake Orientation/consciousness: patient oriented x3 Resp: Effort & Inspection: normal respiratory effort Auscultation: clear to auscultation bilaterally Cardio: Rate: regular rate Rhythm: regular rhythm GI: Inspection: non-distended and incision (incisions dry and intact) GI Palp: Yes Soft to palpation and Yes Tenderness to palpation present (GI) (incisional) Auscultation: normal bowel sounds Neuro: General: moves all extremities and no focal motor deficits Extrem: General: no calf tenderness and no edema Psych: Mental Status: mental status grossly normal Insight: Good insight present (Psych) DS: Data Data Completed and Pending Pending studies at discharge: Pending at discharge 04/24/23 13:46 Surgical [PTH] Routine Procedures/Treatments: Procedures Operation Date: 04/24/23 14:00 Actual Procedure Side Surgeon p Laparoscopic Cholecystectomy with Intra Operative Cholangiograms Not Applicable Naren Bentley DO Operation Date: 04/25/23 13:15 Actual Procedure Side Surgeon p Endoscopic Retro Cholangiopancreatogram with Sphincterotomy with 9-12mm balloon sweep with stone retrieval Reinaldo Gaviria MD Imaging Radiologist's impression: ITS Impressions Abdomen/Pelvis CT 04/22/23 06:46 IMPRESSION: Gallbladder wall thickening/edema suggesting acute cholecystitis Common bile duct dilatation, measuring up to 8.3 mm. Consider possible choledocholithiasis. Chronic right prominent hydronephrosis, possibly due to ureteropelvic disproportion Diminished size of lower pole right renal nonobstructing calculus and resolution of right ureterovesical junction calculus since 12/05/2019 MRCP 04/22/23 14:44 IMPRESSION: 1. Mildly dilated common duct. No choledocholithiasis. 2. Cholelithiasis. Gallbladder wall thickening is suspicious for acute cholecystitis. 3. Ch
== END 2023-04-26 11:43 | disposition home or self-care (01) | DRG 419 ==
LOC: ANHED 03:11 → ANH2MED 08:30
PROVIDERS: Internal Medicine Gastroenterology; Admitting Provider Surgery; Emergency Provider Emergency Medicine; PCP Internal Medicine; Visit Provider Nurse Practitioner Family
PROC: 0FT44ZZ Resection of Gallbladder, Percutaneous Endoscopic Approach (ICD-10-PCS; CPT 47562; principal; 2023-04-24 14:00)
PROC: 0FC98ZZ Extirpation of Matter from Common Bile Duct, Via Natural or Artificial Opening Endoscopic (ICD-10-PCS; CPT 43260; principal; 2023-04-25 13:15)
DX: K80.66 Calculus of gallbladder and bile duct with acute and chronic cholecystitis without obstruction (principal); Z87.442 Personal history of urinary calculi; E66.01 Morbid (severe) obesity due to excess calories; Z68.35 Body mass index [BMI] 35.0-35.9, adult
CPT/HCPCS: 36415; 74177; 74183; 74300; 74329; 76376; 80053; 81001; 81025; 83605; 83690; 85025; 85027; 86850; 86900; 86901; 87086; 87088; 88304; 96374; 99285; A9270; A9577; G0378; J0330; J0690; J1100; J1170; J1610; J2250; J2405; J2704; J3010; J3480; J7030; J7040; J7120; Q9966; Q9967

== ENCOUNTER 2024-09-03 10:27 | Outpatient (CLI) | payer BC, OTHER, SELFPAY ==
--- NOTE | 2024-09-03 | ECG_ITS ---
Test Date: 2024-09-03 11:05:23 Measurements Intervals [place] Rate: 80 P: 38 AK: 144 QRS: 28 QRSD: 86 T: -1 QT: 356 QTc: 412 Interpretive Statements SINUS RHYTHM WITH SINUS ARRHYTHMIA BORDERLINE ST-T WAVE ABNORMALITY- ANT/INF LEADS BASELINE ARTIFACT- I, III, AVL, AVF BORDERLINE ECG No previous ECG available for comparison Electronically Signed On 09-03-2024 12:03:08 [employer] by Alonzo Davies D.O.
--- OUTSIDE RECORDS SUMMARY | 2024-09-03 10:40 | XMS_ITS | Encounter Summary ---
Author Organization [facility] Address [facility] [place] [address] Care Team Providers Care Chemical Engraver Name Role Phone Valentin Benitez MD Primary Care Provider [phone] Encounter Details Date Type Department Care Team (Late st Contact Info) Description 06/08/2021 Prep for Procedure [facility] Pre-Admission Testing [place] [address] [place], [place] [id number] Benson Wing MD 3 [facility] [address] [place], [place] [id number] Social History Tobacco Use Types Packs/Day Years Used Date Smoking Tobacco: Never Smokeless Tobacco: Never Alcohol Use Standard Drinks/Week Comments Yes 0 (1 standard drink = 0.6 oz pur e alcohol) social Comments No Sex and Gender Information Value Date Recorded Sex Assigned at Not on file Legal Sex Female 3:21 PM [employer] Gender Identity Not on file Sexual Orientation Not on file COVID-19 Exposure Response Date Recorded In the last month, have you been in contact with someone who was confirmed or suspected to have Coronavirus / COVID-19? No / Unsure 06/08/2021 2:44 PM [employer]ADE [employer]ER documented as of this encounter Plan of Treatment Not on file documented as of this encounter Results * (ABNORMAL) PROTIME/INR, VENOUS (06/09/2021 9:56 AM [facility]ADE BANDER) PROTIME 13.1(H) 10.2 - 12.9 SEC 06/09/2021 10:39 AM [facility] INR 1.1 06/09/2021 10:39 AM [facility]ER [facility] Comment: Recommended INR Therapeutic Goals: 2.0-3.0 Routine Therapy 2.5-3.5 Mechanical Prosthetic Valves (High Risk) 06/09/2021 9:56 AM [facility]ER Benson Wing MD LABORATORY Final Res ult [facility] [address] [place] [address], [place] [phone] * PTT, PARTIAL THROMBOPLASTIN TIME (06/09/2021 9:56 AM [facility]ADE [facility]ANDER) PTT 28.9 25.1 - 36.5 SEC 06/09/2021 10:39 AM [facility] 06/09/2021 9:56 AM [employer]ER us Benson Wing MD LABORATORY Final Res ult Performing Organization Address City/[facility]/ZIP Co de Phone Number [facility] [address] [place] [id number], [place] [phone] * (ABNORMAL) BASIC METABOLIC PANEL (06/09/2021 9:56 AM [facility] [facility]ER) GLUCOSE 101(H) 70 - 99 MG/DL 06/09/2021 10:42 AM [employer] BUN 15 7 - 18 MG/DL 06/09/2021 10:42 AM [facility] CREATININE S/P/B 0.68 0.55 - 1.02 MG/DL 06/09/2021 10:42 AM [facility] SODIUM S/P/B 138 136 - 145 MMOL/L 06/09/2021 10:42 AM [facility] POTASSIUM S/P/B 3.6 3.5 - 5.1 MMOL/L 06/09/2021 10:42 AM [facility] CHLORIDE S/P/B 107 100 - 108 MMOL/L 06/09/2021 10:42 AM [facility] CO2 26.5 21 - 32 MMOL/L 06/09/2021 10:42 AM [facility] CALCIUM S/P/B 9.3 8.5 - 10.1 MG/DL 06/09/2021 10:42 AM [facility] ANION GAP 4.5(L) 5 - 15 MMOL/L 06/09/2021 10:42 AM [facility] BUN CREATININE RATIO 22.0 6 - 26 06/09/2021 10:42 AM [facility] EGFR NON-AFR. AMER. >90 >90 ML/MIN/1.7 3 M2 06/09/2021 10:42 AM [facility] EGFR AFR. AMER. >90 >90 ML/MIN/1.7 3 M2 06/09/2021 10:42 AM [facility] Comment: NOTE: eGFR is not calculated for patients <18 years of age. This is an estimated GFR (CKD EPI) and should not be used for calculating drug doses. 06/09/2021 9:56 AM [employer]ER us Benson Wing MD LABORATORY Final Res ult [facility] [address] [place] [address], [place] [phone] * CBC W/DIFF AUTOMATED (06/09/2021 9:56 AM [facility]ADE B[facility]ER) WBC 7.6 4.5 - 11.0 x10'3/uL 06/09/2021 10:23 AM [facility] RBC 4.66 4.20 - 5.40 x10'6/uL 06/09/2021 10:23 AM [facility] HGB 13.7 12.0 - 16.0 G/DL 06/09/2021 10:23 AM [facility] HCT 42.4 38.0 - 48.0 % 06/09/2021 10:23 AM [facility] MCV 91.0 81.0 - 99.0 FL 06/09/2021 10:23 AM [facility] MCH 29.4 27.0 - 31.0 PG 06/09/2021 10:23 AM [facility] MCHC 32.3 32.0 - 36.0 G/DL 06/09/2021 10:23 AM [facility] RDW 13.0 11.5 - 14.5 % 06/09/2021 10:23 AM [facility] PLT 328 130 - 400 x10'3/uL 06/09/2021 10:23 AM [facility] MPV 9.9 9.3 - 12.2 FL 06/09/2021 10:23 AM [facility] DIFFERENTIAL TYPE AUTOMATED DIFFERENTIAL 06/09/2021 10:23 AM [facility] NEUTROPHILS % 66.7 % 06/09/2021 10:23 AM [facility] LYMPHOCYTES % 22.9 % 06/09/2021 10:23 AM [facility] MONOCYTES % 7.3 % 06/09/2021 10:23 AM [facility] EOSINOPHILS 2.1 % 06/09/2021 10:23 AM [facility] BASOPHILS 0.7 % 06/09/2021 10:23 AM [facility] IMMATURE GRANS % 0.3 % 06/09/20 10:23 AM [facility] ABS. NEUTROPHILS TOTAL 5.10 1.80 - 7.70 x10'3/uL 06/09/2021 10:23 AM [facility] ABS. LYMPHOCYTES 1.75 1.00 - 4.80 x10'3/uL 06/09/2021 10:23 AM [facility] ABS. MONOCYTES 0.56 0.24 - 0.86 x10'3/uL 06/09/2021 10:23 AM [facility] ABS. EOSINOPHILS 0.16 0.04 - 0.36 x10'3/uL 06/09/2021 10:23 AM [facility] ABS. BASOPHILS 0.05 0.01 - 0.08 x10'3/uL 06/09/2021 10:23 AM [facility] ABS. IMMATURE GRANULOCYTES 0.02 0.00 - 0.49 x10'3/uL 06/09/2021 10:23 AM [facility] 06/09/2021 9:56 AM [employer] us Benson Wing MD LABORATORY Final Res ult [facility] [address] [place] [address], * (ABNORMAL) URINALYSIS WI REFLEX TO CULTURE (06/09/2021 9:52 AM [employer]ER) SPECIMEN TYPE URINE CLEAN CATCH 06/09/2021 9:53 AM [facility] COLOR (U) LIGHT YELLOW 06/09/2021 10:39 AM [facility] TRANSPARENCY CLEAR 06/09/2021 10:39 AM [facility] SPECIFIC GRAVITY (U) 1.021 1.001 - 1.030 06/09/2021 10:39 AM [facility] U PH 6.5 5.0 - 9.0 06/09/2021 10:39 AM [facility] LEUKOCYTES (U) 75(A) NEGATIVE 06/09/2021 10:39 AM [facility] NITRITES NEGATIVE NEGATIVE 06/09/2021 10:39 AM [facility] PROTEIN (U) NEGATIVE <30 MG/DL 06/09/2021 10:39 AM [facility] URINE GLUCOSE NORMAL NORMAL MG/DL 06/09/2021 10:39 AM [facility] KETONES MG/DL (U) NEGATIVE NEGATIVE MG/DL 06/09/2021 10:39 AM [facility] UROBILINOGEN NORMAL NORMAL MG/DL 06/09/2021 10:39 AM [facility] BILIRUBIN (U) NEGATIVE NEGATIVE MG/DL 06/09/2021 10:39 AM [facility] BLOOD (U) TRACE(A) NEGATIVE 06/09/2021 10:39 AM [facility] CULTURE & SENSITIVITY INDICATED? SPECIMEN SETUP FOR CULTURE 06/09/2021 10:39 AM [facility] TRANSITIONAL EPI RARE /HPF 06/09/20 10:39 AM [facility] MUCUS RARE /LPF 06/09/2021 10:39 AM [facility] WBC/HPF 2 <6 /HPF 06/09/2021 10:39 AM [facility] RBC/HPF 4 <6 /HPF 06/09/2021 10:39 AM [facility] BACTERIA (U) RARE(A) NONE /HPF 06/09/2021 10:39 AM [facility] [facility] SQUAMOUS EPITHELIALS FEW /HPF 06/09/2021 10:39 AM [employer] [facility] URINE SPECIMEN OBTAINED BY CLEAN CATCH PROCEDURE / Unknown 06/09/2021 9:52 AM [employer]ER Benson Wing MD URINE ORDERABLES Final Re sult [facility] [address] [place] [address], documented in this encounter Visit Diagnoses Diagnosis Right renal stone- Primary documented in this encounter Care Teams Chemical Engraver Relationship Specialty Start Date End Date Valentin Benitez MD PCP - General INTERNAL MEDICINE 06/09/21 documented as of this encounter
--- OUTSIDE RECORDS SUMMARY | 2024-09-03 10:41 | XMS_ITS | Data Portability ---
Author Organization [facility] [place] Address [address] [place] [address] Care Team Providers Care Mail Caller Name Role Phone GUICHO BROWN Primary Care Provider Assessment Encounter Date Assessment Date Assessment LastModified by Organization Details LastModified Time 07/20/2023 07/20/2023 Annual gynecological exam performed. Patient will come back in a year unless there are new symptoms. [email or web address] Not available 07/20/2023 17:22:21 07/29/2024 07/29/2024 Annual gynecological exam performed. Patient will come back in a year unless there are new symptoms. [email or web address] Not available 07/29/2024 17:54:06 Plan of Treatment Reminders Order Date Submit Date Provider Last Modified By Organization Details Last Modified Time Details Appointments None recorded. Lab CMP, serum or plasma 2023 024 [facility] (Lab), [address], [place], [address], 4 08:40:55 lipid panel, blood 2023 024 [facility] (Lab), [address] [place], [address], 4 08:40:54 CBC w/ auto diff 2023 024 [facility] (Lab), [address] [place], [address], 4 08:40:53 HbA1c (hemoglobin A1c), blood 2023 024 [facility] (Lab), [address] [facility], [place], [address], 4 08:40:56 TSH, serum or plasma 2023 024 [facility] (Lab), [address] [facility], [place], [address], 4 08:40:55 vitamin D, 25-hydroxy, total, serum 2023 024 [facility] (Lab), [address] [facility], [place], [address], 4 08:40:56 Referral None recorded. Procedures None recorded. Surgeries None recorded. Imaging None recorded. Medication Orders Loestrin Fe 1.5/30 (28-Day) 1.5 mg-30 mcg (21)/75 mg (7) tablet 2024 025 [facility], [address] [place] [address], [address], 5 18:18:05 Zepbound 15 mg/0.5 mL subcutaneou s pen injector 2023 024 [id number], [address], [place], [id number], 4 17:17:40 Slynd 4 mg (28) tablet 2023 024 [facility], [facility] [place], [address], 4 17:18:00 Zepbound 12.5 mg/0.5 mL subcutaneou s pen injector 2023 024 [facility], [address], [place], [id number], 4 15:32:04 Zepbound 5 mg/0.5 mL subcutaneou s pen injector 2023 024 [email or web address], [address] [place] [address], [address], 4 16:16:31 Patient TargetsNo targets recorded. Patient InstructionsNo instructions recorded. Reason for Referral None Reported. Results Created Date Observation Date Name Description Value Unit Range Abnormal Flag Note LastModifiedBy Organization Detail LastModifiedTime 07/20/19 24 07/20/2023 IMAGE GUIDE D PAP AND HPV REGAR DLESS image guided Pap, HPV regardless of Pap result SEE RESULT S BELOW CASE REPOR T: Cytol ogy Gynec ologi karlene Repor t Case: [id number] Autho rizin g Provi yayo: Tati Sullivan MD Colle cted: 07/20 1713 Order ing Locat ion: [place] Patho logy Recei charmaine: 07/21 0601 First Scree n: Carrie Polo ica Rescr een: Zechariah Núñez CT Speci men: Screshanna toth Pap - Image d, Cervi x STATE MENT OF ADEQU ACY: Satis facto ry for evalu ation Trans forma tion zone compo nent absen t The absen ce of an endoc ervic al compo nent was confi rmed by an addit ional scree ner. FINAL DIAGN OSIS: Negat padmini for Intra epith elial Chasidy rodriguez or Noel grande (NIL) . Elect demetri aparicio d by Zechariah Núñez, CT on at 7:48 AM ----- ----- ----- ----- ----- ----- ----- ----- ----- ----- ----- ----- ----- ----- ----- ----- ----- ---- HPV RESUL TS: HPV mRNA E6/E7 : No HPV mRNA Detec rachele NOTE: This high risk HPV mRNA assay detec ts fourt een high- risk HPV types (16, 18, 31, 33, 35, 39, 45, 51, 52, 56, 58, 59, 66, 68) witho ut diffe renti ation . COMME NT: This speci men was revie wed by a Cytot echno logis t and/o r Patho logis t (as indic ated in this repor t) after evalu ation using the Thinp rep Imagi ng Syste m. CLINI KARLENE INFOR MATIO N: Menst rual Statu s: LMP (if appli cable ): Clini karlene Histo ry/Pr eviou s Pap: Type of Neopl carlos (if appli cable ): Signi fican t Clini karlene Findi ngs: Other Histo ry: Hormo colby (if appli cable ): PAP EDUCA MILADYS L NOTE: The Pap Test is a scree navneet test with an inher ent false negat padmini rate. Liqui d-bas ed sampl ing may decre ase, but will not elimi yani, false negat padmini resul ts. A negat padmini resul t does not precl ude the prese nce and/o r devel opmen t of disea se, since the prese nce of abnor mal cells in the sampl e depen ds on the locat ion of the lesio n and sampl ing techn ique. Fabiola nued regul ar scree navneet is the best metho d of cance r preve ntion . If repor rachele cytol ogic findi ng do not corre late with physi karlene and/o r histo rical findi ngs, furth er inves tigat ion is recom kael d, as clini devi smith nted. Not Available [facility] (Lab) [address], [place], [address], 07/24/2023 08:52:57 10/19/19 24 10/19/2023 CBC W/DIF F WBC 7.0 10'3/ uL 3.5-10 .5 Not Available [facility] (Lab) [address], [place], [address], 10/20/2023 08:40:53 10/19/19 24 10/19/2023 CBC W/DIF F RBC 4.37 10'6/ uL (based on docume nted legal sex) 3.80-5 .20 Not Available [facility] (Lab) [address], [place], [address], 10/20/2023 08:40:53 10/19/19 24 10/19/2023 CBC W/DIF F HGB 13.3 g/dL (based on docume nted legal sex) 11.6-1 5.4 Not Available [facility] (Lab) [address], [place], [address], 10/20/2023 08:40:53 10/19/19 24 10/19/2023 CBC W/DIF F HCT 40.3 % (based on docume nted legal sex) 34.0-4 5.0 Not Available [facility] (Lab) [address], [place], [address], 10/20/2023 08:40:53 10/19/19 24 10/19/2023 CBC W/DIF F MCV 92.2 fL 80.0-9 9.0 Not Available [facility] (Lab) [address], [place], [address], 10/20/2023 08:40:53 10/19/19 24 10/19/2023 CBC W/DIF F MCH 30.4 pg 27.0-3 4.0 Not Available [facility] (Lab) [address], [place], [address], 10/20/2023 08:40:53 10/19/19 24 10/19/2023 CBC W/DIF F MCHC 33.0 g/dL 32.0-3 5.5 Not Available [facility] (Lab) [address], [place], [address], 10/20/2023 08:40:53 10/19/19 24 10/19/2023 CBC W/DIF F RDW 13.3 % 11.0-1 5.0 Not Available [facility] (Lab) [address] [facility], [place], [address], 10/20/2023 08:40:53 10/19/19 24 10/19/2023 CBC W/DIF F plt 304 10'3/ uL 150-40 0 Not Available [facility] (Lab) [address] [facility], [place], [address], 10/20/2023 08:40:53 10/19/19 24 10/19/2023 CBC W/DIF F MPV 10.3 fL 8.8-12 .1 Not Available [facility] (Lab) [address] [facility], [place], [address], 10/20/2023 08:40:53 10/19/19 24 10/19/2023 CBC W/DIF F NRBC's 0.0 % 0.0 Not Available [facility] (Lab) [address] [facility], [place], [address], 10/20/2023 08:40:53 10/19/19 24 10/19/2023 CBC W/DIF F absolute NRBCs 0.0 10'3/ uL no refere nce range establ ished 5:42 AM: P indic ates parti al resul ts on a panel have been relea sed. Addit ional resul ts will follo w. 024 6:10 AM: This resul t has been final verif ied. No addit ional or qiu ed resul ts are expec rachele. Not Available [facility] (Lab) [address] [facility], [place], [address], 10/20/2023 08:40:53 10/19/19 24 10/19/2023 BLOOD SMEAR EXAM (ONLY ) neutrophils 52.0 % 34.0-7 3.0 Not Available [facility] (Lab) [address] [facility], [place], [address], 10/20/2023 08:40:54 10/19/19 24 10/19/2023 BLOOD SMEAR EXAM (ONLY ) lymphocytes 30.0 % 15.0-5 0.0 Not Available [facility] (Lab) [address] [facility], [place], [address], 10/20/2023 08:40:54 10/19/19 24 10/19/2023 BLOOD SMEAR EXAM (ONLY ) reactive lymphocytes 6.0 % Not Available [facility] (Lab) [address] [facility], [place], [address], 10/20/2023 08:40:54 10/19/19 24 10/19/2023 BLOOD SMEAR EXAM (ONLY ) monocytes 7.0 % 1.0-15 .0 Not Available [facility] (Lab) [address] [place], [address], 10/20/2023 08:40:54 10/19/19 24 10/19/2023 BLOOD SMEAR EXAM (ONLY ) eosinophils 3.0 % 0.0-8. 0 Not Available [facility] (Lab) [address] [place], [address], 10/20/2023 08:40:54 10/19/19 24 10/19/2023 BLOOD SMEAR EXAM (ONLY ) basophils 0.0 % 0.0-2. 0 Not Available [facility] (Lab) [address] [place], [address], 10/20/2023 08:40:54 10/19/19 24 10/19/2023 BLOOD SMEAR EXAM (ONLY ) bands 2.0 % 0.0-11 .0 Not Available [facility] (Lab) [address] [place], [address], 10/20/2023 08:40:54 10/19/19 24 10/19/2023 BLOOD SMEAR EXAM (ONLY ) absolute neutrophils 3.6 10'3/ uL 1.5-8. 0 Not Available [facility] (Lab) [address] [place], [address], 10/20/2023 08:40:54 10/19/19 24 10/19/2023 BLOOD SMEAR EXAM (ONLY ) absolute lymphocytes 2.1 10'3/ uL 1.0-4. 0 Not Available [facility] (Lab) [address] [facility], [place], [address], 10/20/2023 08:40:54 10/19/19 24 10/19/2023 BLOOD SMEAR EXAM (ONLY ) absolute reactive lymphocytes 0.4 10'3/ uL Not Available [facility] (Lab) [address] [facility], [place], [address], 10/20/2023 08:40:54 10/19/19 24 10/19/2023 BLOOD SMEAR EXAM (ONLY ) absolute monocytes 0.5 10'3/ uL 0.2-1. 0 Not Available [facility] (Lab) [address] [facility], [place], [address], 10/20/2023 08:40:54 10/19/19 24 10/19/2023 BLOOD SMEAR EXAM (ONLY ) absolute eosinophils 0.2 10'3/ uL 0.0-0. 6 Not Available [facility] (Lab) [address] [facility], [place], [address], 10/20/2023 08:40:54 10/19/19 24 10/19/2023 BLOOD SMEAR EXAM (ONLY ) absolute basophils 0.0 10'3/ uL 0.0-0. 3 Not Available [facility] (Lab) [address] [facility], [place], [address], 10/20/2023 08:40:54 10/19/19 24 10/19/2023 BLOOD SMEAR EXAM (ONLY ) absolute bands 0.1 10'3/ uL 0.0-1. 0 Not Available [facility] (Lab) [address] [place], [address], 10/20/2023 08:40:54 10/19/19 24 10/19/2023 BLOOD SMEAR EXAM (ONLY ) platelet morphology Normal Not Available [facility] (Lab) [address], [place], [address], 10/20/2023 08:40:54 10/19/19 24 10/19/2023 BLOOD SMEAR EXAM (ONLY ) RBC morphology Review ed normal Not Available [facility] (Lab) [address], [place], [address], 10/20/2023 08:40:54 10/19/19 24 10/19/2023 BLOOD SMEAR EXAM (ONLY ) toxic granulation Few (none) abnormal Not Available [facility] (Lab) [address], [place], [address], 10/20/2023 08:40:54 10/19/19 24 10/19/2023 LIPID PANEL ,AMA (LDL- CALC) total cholesterol 208 mg/dL 0-199 high Not Available [facility] (Lab) [address], [place], [address], 10/20/2023 08:40:54 10/19/19 24 10/19/2023 LIPID PANEL ,AMA (LDL- CALC) triglyceride s 69 mg/dL 0-150 NCEP Refer ence Value s for Trigl yceri dion: Harriet l: <150 mg/dL Borde rline High: 150 - 199 mg/dL High: 200 - 499 mg/dL Very High: >/= 500 mg/dL Not Available [facility] (Lab) [address], [place], [address], 10/20/2023 08:40:54 10/19/19 24 10/19/2023 LIPID PANEL ,AMA (LDL- CALC) HDL cholesterol 51 mg/dL >40 Not Available [facility] (Lab) [address] [facility], [place], [address], 10/20/2023 08:40:54 10/19/19 24 10/19/2023 LIPID PANEL ,AMA (LDL- CALC) LDL cholesterol 141 mg/dL 0-99 high Cutof f value s recom kael d by the Natio nal Malgorzata stero l Educa tion Progr am: YOLIE ABLE: Malgorzata stero l <200 mg/dL LDL <100 mg/dL BORDE RLINE : Malgorzata stero l 200-2 39 mg/dL LDL 101-1 59 mg/dL HIGHE R RISK: Malgorzata stero l >240 mg/dL LDL >160 mg/dL , HDL <40 mg/dL Not Available [facility] (Lab) [address] [place], [address], 10/20/2023 08:40:54 10/19/19 24 10/19/2023 LIPID PANEL ,AMA (LDL- CALC) non-HDL cholesterol 157 mg/dL no refere nce range A reaso nable goal for non-H DL malgorzata stero l is one that is 30 mg/dL highe r than the LDL malgorzata stero l goal. Not Available [facility] (Lab) [address] [facility], [place], [address], 10/20/2023 08:40:54 10/19/1910/19/2023 LIPID PANEL ,AMA (LDL- CALC) chol/HDL ratio 4.1 . 0.0-5. 0 On November 08, 2022, [facility] labor atori es uyen ed the equat ion for calcu latin g estim ated low-d ensit y lipop rotei n-cho leste rol (LDL- C) from the Fermin andrew equat ion to the Jeannette rodriguez/Ktahia sunshine equat ion. This new equat ion is only valid for lipid panel s with trigl yceri dion < 400 mg/dL . Studi es have demon strat ed that this new equat ion will impro ve the accur acy of LDL-C , espec ially in scena cross when LDL-C darcie ntrat ions are relat ively low (< 100 mg/dL ), trigl yceri dion are eleva rachele, or patie nt is non-f astin g. Refer ences : - Mike Bravo, Franklin Brown , Ady ball, Chidi Nickerson, Chidi mancilla, Farshad marroquin , and Smith Brito . 2013. Comp ariso n of a Novel Metho d vs the Fried kamran Equat ion for Estim ating Low-D ensit y Lipop rotei n Malgorzata stero l Level s from the Stand daryn Lipid Profrafy velasquez. JUSTINE: The Journ al of the Ameri can Medic al Assoc iatio n 310 (19): 2060- . - Yesi marcelo V, Lynne J, Cheryle marcelo A, Yury M, Poli stovall R, Ying marcelo E, Lisa marroquin RS, Daryl SR, Jeannette rodriguez SS. Fast ing Versu s Nonfa sting and Low-D ensit y Lipop rotei n Malgorzata stero l Accur acy. Circu latio n. 2017Jul 18;137 (1):1 0-19. Not Available [facility] (Lab) [address] [place], [address], 10/20/2023 08:40:54 10/19/19 24 10/19/2023 CMP(C OMPRE HENSI VE METAB OLIC PANEL ) sodium 137 mmol/ L 133-14 6 Not Available [facility] (Lab) [address] [place], [address], 10/20/2023 08:40:55 10/19/19 24 10/19/2023 CMP(C OMPRE HENSI VE METAB OLIC PANEL ) potassium 3.9 mmol/ L 3.5-5. 1 Not Available [facility] (Lab) [address] [place], [address], 10/20/2023 08:40:55 10/19/19 24 10/19/2023 CMP(C OMPRE HENSI VE METAB OLIC PANEL ) chloride 104 mmol/ L 98-107 Not Available [facility] (Lab) [address] [place], [address], 10/20/2023 08:40:55 10/19/19 24 10/19/2023 CMP(C OMPRE HENSI VE METAB OLIC PANEL ) carbon dioxide 27 mmol/ L 21-31 Not Available [facility] (Lab) [address] [facility], [place], [address], 10/20/2023 08:40:55 10/19/19 24 10/19/2023 CMP(C OMPRE HENSI VE METAB OLIC PANEL ) anion gap 6 mmol/ L 4-13 Not Available [facility] (Lab) [address] [facility], [place], [address], 10/20/2023 08:40:55 10/19/19 24 10/19/2023 CMP(C OMPRE HENSI VE METAB OLIC PANEL ) blood urea nitrogen 17 mg/dL 7-[address] [facility] (Lab) [address] [facility], [place], [address], 10/20/2023 08:40:55 10/19/19 24 10/19/2023 CMP(C OMPRE HENSI VE METAB OLIC PANEL ) creatinine 0.69 mg/dL 0.60-1 .30 Not Available [facility] (Lab) [address] [facility], [place], [address], 10/20/2023 08:40:55 10/19/19 24 10/19/2023 CMP(C OMPRE HENSI VE METAB OLIC PANEL ) egfrcr (CKD-epi 2020) >90 mL/mi n/1.7 3_m2 >=60 Not Available [facility] (Lab) [address] [facility], [place], [address], 10/20/2023 08:40:55 10/19/19 24 10/19/2023 CMP(C OMPRE HENSI VE METAB OLIC PANEL ) calcium 9.3 mg/dL 8.3-10 .5 Not Available [facility] (Lab) [address] [place], [address], 10/20/2023 08:40:55 10/19/19 24 10/19/2023 CMP(C OMPRE HENSI VE METAB OLIC PANEL ) glucose 79 mg/dL 70-100 Not Available [facility] (Lab) [address] [facility], [place], [address], 10/20/2023 08:40:55 10/19/19 24 10/19/2023 CMP(C OMPRE HENSI VE METAB OLIC PANEL ) protein, total 7.1 g/dL 6.4-8. 3 Not Available [facility] (Lab) [address] [facility], [place], [address], 10/20/2023 08:40:55 10/19/19 24 10/19/2023 CMP(C OMPRE HENSI VE METAB OLIC PANEL ) albumin 4.1 g/dL 3.5-5. 0 Not Available [facility] (Lab) [address] [facility], [place], [address], 10/20/2023 08:40:55 10/19/19 24 10/19/2023 CMP(C OMPRE HENSI VE METAB OLIC PANEL ) ALT 17 units /L 9-43 Not Available [facility] (Lab) [address] [facility], [place], [address], 10/20/2023 08:40:55 10/19/19 24 10/19/2023 CMP(C OMPRE HENSI VE METAB OLIC PANEL ) alkaline phosphatase 76 units /L 34-104 Not Available [facility] (Lab) [address] [place], [address], 10/20/2023 08:40:55 10/19/19 24 10/19/2023 CMP(C OMPRE HENSI VE METAB OLIC PANEL ) AST 13 units /L 13-39 Not Available [facility] (Lab) [address] [place], [address], 10/20/2023 08:40:55 10/19/19 24 10/19/2023 CMP(C OMPRE HENSI VE METAB OLIC PANEL ) bilirubin, total 0.4 mg/dL 0.2-1. 2 Not Available [facility] (Lab) [address] [place], [address], 10/20/2023 08:40:55 10/19/19 24 10/19/2023 TSH, REFLE X FREE T4 TSH 2.59 uIU/m L 0.30-5 .33 Not Available [facility] (Lab) [address], [place], [address], 10/20/2023 08:40:55 10/19/19 24 10/19/2023 VITAM IN D, 25-OH (TOTA L D2/D3 ) vitamin D, 25-hydroxy, total 25.3 NG/mL 30.0-1 00.0 low Sugge stive of Defic iency : <20 ng/mL Sugge stive of Insuf ficie ncy: 20-29 ng/mL Sugge stive of Suffi cienc y: 30-10 0 ng/mL Sugge stive of Toxic ity: >150 ng/mL Not Available [facility] (Lab) [address], [place], [address], 10/20/2023 08:40:56 10/19/19 24 10/19/2023 HEMOG LOBIN A1C hemoglobin A1C 5.2 % 0-5.6 The Ameri can Diabe chris Assoc iatio n recom mends that a prima ry goal of thera py shoul d be a HBA1C of < 7% and that physi cians shoul d reeva luate the treat ment regim en in patie nts with HBA1C value s consi stent ly > 8%. <5.7% Harriet l 5.7 - 6.4% Incre ased risk for diabe chris >=6.5 % Diagn ostic of diabe chris <7.0% Goal of thera py >8.0% Actio n sugge sted Not Available [facility] (Lab) [address], [place], [address], 10/20/2023 08:40:56 07/29/19 25 07/29/2024 IMAGE GUIDE D PAP AND HPV REGAR DLESS image guided Pap, HPV regardless of Pap result SEE RESULT S BELOW abnormal CASE REPOR T: Cytol ogy Gynec ologi karlene Repor t Case: [id number] Autho angel neely Provi yayo: Tati Sullivan MD Colle cted: 07/29 1728 Order ing Locat ion: [place] Patho logy Recei charmaine: 07/30 0135 First Scree n: Jas Hart, CT Patho logis t: Иван Goins rd, MD Speci men: Dino toth Pap - Image d, Cervi x STATE MENT OF ADEQU ACY: Satis facto ry for evalu ation Trans forma tion zone compo nent prese nt ----- ----- ----- ----- ----- ----- ----- ----- ----- ----- ----- ----- ----- ----- ----- ----- ----- ---- FINAL DIAGN OSIS: Epith elial Cell Abnor malit y, Squam ous Cell: Atypi karlene Squam ous Cells of Undet ermin ed Zenon ratliff (ASC- [place]). HPV RESUL TS: HPV mRNA E6/E7 : No HPV mRNA Detec rachele NOTE: This high risk HPV mRNA assay detec ts fourt een high- risk HPV types (16, 18, 31, 33, 35, 39, 45, 51, 52, 56, 58, 59, 66, 68) witho ut diffe renti ation . COMME NT: This speci men was revie wed by a Cytot echno logis t and/o r Patho logis t (as indic ated in this repor t) after evalu ation using the Thinp rep Imagi ng Syste m. CLINI KARLENE INFOR MATIO N: Menst rual Statu s: LMP (if appli cable ): Clini karlene Histo ry/Pr eviou s Pap: Type of Neopl carlos (if appli cable ): Signi scarlett t Clini karlene Findi ngs: Other Histo ry: Hormo colby (if appli cable ): SUGGE STED FOLLO W-UP: Follo w up as luis nted, based on curre nt guide lines and indiv idual patie nt consi derat ions. Not Available [facility] (Lab) [address] [facility], [place], [address], 08/05/2024 10:58:00 Result Notes None recorded. Problems Name Problem SNOMED Code Status Onset Date Resolution Date Notes Provider Name and Address Organization Details Recorded Time Normal pregnanc y in multigra eric [id number] [id number] Completed 201804/27/2021 Encounte r for suprvsn of normal pregnanc y, third trimeste r;Record ed Elsewher e: No Locat ion: [facility] S ource: EHR Chemical Applicator magalie: N Jordon ce ID: 0001 Leandro lable Time: 10:15:00 AM Aneta Rosepine [facility] 14:54:52 Primigra eric [id number] Completed 201104/27/2021 Supervis ion of normal first pregnanc y;Record ed Elsewher e: No Locat ion: [facility] S ource: EHR Chemical Applicator magalie: N Jordon ce ID: 0001 Leandro lable Time: 04:00:[address] [facility] 14:54:16 Adult health examinat ion Completed 201404/27/2021 ROUTINE MEDICAL EXAM;Rec orded Elsewher e: No Locat ion: [facility] S ource: EHR Chemical Applicator magalie: N Practi ce ID: 0001 Leandro lable Time: 02:30:[address] PM [address] [facility] 14:54:39 Pregnanc y detectio n examinat ion Completed 201804/27/2021 Encounte r for pregnanc y test, result positive ;Recorde d Elsewher e: No Locat ion: [facility] S ource: EHR Chemical Applicator magalie: N Practi ce ID: 0001 Leandro lable Time: 02:45:00 PM Aneta jacome [facility] 14:55:[address] Concept Completed 201804/27/2021 Decrease d movement s, third trimeste r, unsp;Rec orded Elsewher e: No Locat ion: [facility] S ource: EHR Chemical Applicator magalie: N Practi ce ID: 0001 Leandro lable Time: 11:00:00 AM Aneta jacome [facility] 14:54:31 Postpart um care Completed 201104/27/2021 Routine postpart um follow-u p;Record ed Elsewher e: No Locat ion: [facility] S ource: EHR Chemical Applicator magalie: N Practi ce ID: 0001 Leandro lable Time: 04:00:00 PM Aneta jacome [facility] 14:54:17 Routine antenata l care Completed 201104/27/2021 Supervis ion of other normal pregnanc y;Practi ce ID: 0001 Aneta jacome [facility] 14:54:19 Speciali zed medical examinat ion Completed 201104/27/2021 Routine gynecolo gical examinat ion;Prac janelle ID: 0001 Aneta jacome, [facility] 14:54:54 Pregnanc y test positive [id number] Completed 201104/27/2021 Positive Pregnanc y Test;Pra ctice ID: 0001 Aneta jacome [facility] 14:54:34 Screenin g for malignan t neoplasm of cervix Completed 201104/27/2021 Pap Smear;Pr actice ID: 0001 Aneta jacome [facility] 14:54:24 anatomy study Completed 201104/27/2021 [facility] SURVEY;P ractice ID: 0001 [facility]:54:42 Known OR suspecte d abnormal ity affectin g manageme nt of mother Completed 201104/27/2021 Unspecif ied suspecte d abnormal ity, affectin g manageme nt of mother, unspecif ied as to episode of care;Pra ctice ID: 0001 [facility] 14:54:57 Prematur e labor [id number] Completed 201104/27/2021 LABOR;Pr actice ID: 0001 [facility] 14:54:55 Obstruct ed labor due to malposit ion - delivere d [id number] Completed 201104/27/2021 Obstruct ion caused by malposit ion of fetus at onset of labor, with delivery ;Practic e ID: 0001 [facility] 14:54:26 Single live [id number] Completed 201104/27/2021 Mother with single liveborn ;Practic e ID: 0001 Aneta jacome [facility] 14:54:23 Deliveri es by [id number] Completed 201104/27/2021 delivery , without mention of indicati on, unspecif ied as to episode of care;Pra ctice ID: 0001 [address] [facility] 14:54:28 Contrace ption care manageme nt Completed 201204/27/2021 DO NOT USE Provider s;Practi ce ID: 0001 [facility] 14:54:49 Female infertil ity [id number] Completed 201404/27/2021 Infertil mony, female, of unspecif ied origin;Kyra escalera ID: 0001 Aneta jacome, [facility] 14:55:[address] Concept Completed 201804/27/2021 Encntr for photographer helper exam (general ) (routine ) w/o abn findings ;Practic e ID: 0001 Aneta jacome, [facility] 14:54:45 Gestatio n period, 8 weeks [id number] Completed 201804/27/2021 8 weeks gestatio n of pregnanc y;Practi ce ID: 0001 Aneta jacome [facility] 14:54:37 Pregnanc y, childbir th and puerperi um finding Completed 201804/27/2021 Encntr for suprvsn of normal first preg, second trimeste r;Practi ce ID: 0001 Aneta jacome, [facility] 14:54:46 Antenata l screenin g Completed 201804/27/2021 Encounte r for other specifie d antenata l screenin g;Practi ce ID: 0001 Aneta jacome [facility] 14:54:33 Antenata l screenin g for malforma tion Completed 201804/27/2021 Encounte r for antenata l screenin g for malforma tions;Pr actice ID: 0001 Aneta jacome [facility] 14:55:06 Gestatio n period, 38 weeks [id number] Completed 201804/27/2021 38 weeks gestatio n of pregnanc y;Practi ce ID: 0001 Aneta Monsivais ayaz [facility] 14:54:20 Single liveborn born in hospital by section [id number] Completed 201804/27/2021 Single liveborn , delivere d by ;Practic e ID: 0001 Aneta jacome, [facility] 14:54:51 Gestatio n period, 39 weeks [id number] Completed 201804/27/2021 39 weeks gestatio n of pregnanc y;Practi ce ID: [address] [facility] 14:55:09 Inflamma tory disorder of breast [id number] Completed 201804/27/2021 Mastitis without abscess; Practice ID: [address] [facility] 14:54:36 Lochia finding Completed 201904/27/2021 Encounte r for routine postpart um follow-u p;Practi ce ID: [address] [facility] 14:54:[address] Concept Completed 201804/27/2021 Encntr for general adult medical exam w/o abnormal findings ;Recorde d Elsewher e: No Locat ion: Bette stovall [facility] S ource: EHR [employer]ator magalie: N Practi ce ID: 0001 Leandro lable Time: 09:45:00 AM Aneta Monsivais [facility] 14:54:43 Evaluati on finding Completed 201804/27/2021 Unsp abnormal cytolog findings in specmn from cervix uteri;Re corded Elsewher e: No Locat ion: [facility] S ource: EHR Chemical Applicator magalie: N Practi ce ID: 0001 Leandro lable Time: 09:45:00 AM Aneta Monsivais [facility] 14:54:40 Problem Notes None recorded. Procedures Surgical History Date Name Laterality Status Provider Name and Address Organization Details Recorded Time 024 Date of Last Pap Smear completed Emy Villalobos [facility] 10/16/2023 16:16:46 023 cholecystectomy completed RANJIT Burnham [address], [place], [address], [facility] 05/02/2023 17:51:12 023 laparoscopic cholecystectomy completed [facility] 05/02/2023 17:20:48 022 extracorporeal shockwave lithotripsy of calculus of kidney completed [facility] 07/15/2022 15:28:18 021 extracorporeal shockwave lithotripsy of calculus of kidney completed [facility] 07/15/2022 15:28:13 020 extraction of wisdom tooth completed [facility] 07/15/2022 15:28:32 019 section completed [facility] 11/18/2019 19:04:25 012 section completed [facility] 11/18/2019 19:04:16 Imaging Results None recorded. Procedure Notes None recorded. Medical Equipment None Reported. Allergies No known drug allergies Medications Name Sig Start Date Stop Date Status Note LastModified by Organization Details LastModified Time Prescript ion - Prior Authoriza tion Request 01/10 completed Not Available Not Available Not Available venlafaxi ne ER 37.5 mg capsule,e xtended release 24 hr active Not Available Not Available Not Available fluconazo le 150 mg tablet take 1 tablet by mouth today and repeat in 72 hours 08/12 completed Not Available Not Available Not Available valacyclo vir 1 gram tablet active Not Available Not Available Not Available hydrocodo ne 5 mg-acetam inophen 325 mg tablet TAKE ONE TABLET BY MOUTH EVERY 4 TO 6 HOURS NEEDED FOR PAIN. PAIN RATED 4-6 ON A SCALE OF 1-10 07/17 completed Not Available Not Available Not Available amoxicill in 875 mg tablet 10/15 completed Not Available Not Available Not Available Flagyl 500 mg tablet take 1 tablet by oral route twice daily for 7 days 10/30 completed Prescrib ed Elsewher e: No Locat ion: [facility] odify By: dmrose Shanna ncounter DateTime : 09/26/19 15 04:29:30 PM Not Available Not Available Not Available cephalexi n 500 mg capsule take 1 capsule by oral route three times daily 04/28 completed Not Available Not Available Not Available ibuprofen 600 mg tablet 11/05 completed Not Available Not Available Not Available Vitamin D2 1,250 mcg (50,000 unit) capsule Take 1 capsule every week by oral route. 01/19 completed Not Available Not Available Not Available ondansetr on 4 mg disintegr ating tablet TAKE 2 TABLETS EVERY 12 HOURS BY TRANSLIN GUAL ROUTE NEEDED FOR NAUSEA 01/10 completed Not Available Not Available Not Available Boostrix Tdap 2.5 Lf unit-8 mcg-5 Lf/0.5 mL intramusc ular syringe 11/05 completed Not Available Not Available Not Available cholecalc iferol (vitamin D3) 1,250 mcg (50,000 unit) capsule TAKE 1 CAPSULE EVERY WEEK BY ORAL ROUTE. 01/10 completed Not Available Not Available Not Available Janette 0.35 mg tablet active Not Available Not Available Not Available Lo Loestrin Fe 1 mg-10 mcg (24)/10 mcg (2) tablet take 1 tablet by oral route every day 09/18 completed Prescrib ed Elsewher e: No Locat ion: [facility] odify By: [email or web address] Stovall ncounter DateTime : 10/12/19 13 08:23:08 AM Not Available Not Available Not Available Venatal Complete DHA 27 mg-1 mg-430 mg tablet and capsule,d elay releas take 2 by Oral route every day 09/18 completed Prescrib ed Elsewher e: No Locat ion: Joey shanna [facility] odify By: amkuhbill Stovall ncoyesi DateTime : 09/20/19 12 02:57:58 PM Not Available Not Available Not Available Fiber Gummies 2.5 gram chewable tablet 06/28 completed Prescrib ed Elsewher e: Yes Loca tion: Bette stovall [facility] odify By: [email or web address] Michael parada DateTime : 09/19/19 15 02:30:00 PM Not Available Not Available Not Available Aurovela Fe 1.5/30 (28) 1.5 mg-30 mcg (21)/75 mg (7) tablet Take 1 tablet every day by oral route. active Not Available Not Available No t Available Flucelvax Quad [id number] (PF) 60 mcg (15 mcg x 4)/0.5 mL IM syringe 11/05 completed Not Available Not Available Not Available Slynd 4 mg (28) tablet TAKE 1 TABLET DAILY active Not Available Not Available No t Available Wegovy 2.4 mg/0.75 mL subcutane ous pen injector Inject 2.4 mg every week by subcutan eous route. active Not Available Not Available No t Available Wegovy 1.7 mg/0.75 mL subcutane ous pen injector INJECT 1.7 MG SUBCUTAN EOUSLY ONE TIME PER WEEK 05/02 completed Not Available Not Available Not Available Wegovy 1 mg/0.5 mL subcutane ous pen injector INJECT 1 MG SUBCUTAN EOUSLY EVERY WEEK 11/25 completed Not Available Not Available Not Available Wegovy 0.25 mg/0.5 mL subcutane ous pen injector Inject 0.25 mg every week by subcutan eous route. 07/20 completed Not Available Not Available Not Available Wegovy 0.5 mg/0.5 mL subcutane ous pen injector INJECT 0.5 MG SUBCUTAN EOUSLY EVERY WEEK 11/25 completed Not Available Not Available Not Available Zepbound 10 mg/0.5 mL subcutane ous pen injector Inject 10mg by subcutan eous route once weekly 01/10 completed Not Available Not Available Not Available Zepbound 5 mg/0.5 mL subcutane ous pen injector Inject 5 mg every week by subcutan eous route. 10/15 completed Not Available Not Available Not Available Zepbound 2.5 mg/0.5 mL subcutane ous pen injector Inject 2.5 mg every week by subcutan eous route. 10/15 completed Not Available Not Available Not Available Zepbound 15 mg/0.5 mL subcutane ous pen injector ADMINIST ER 15 MG UNDER THE SKIN EVERY WEEK 2024 active Not Available Not Available Not Avai lable Zepbound 12.5 mg/0.5 mL subcutane ous pen injector ADMINIST ER 12.5 MG UNDER THE SKIN EVERY WEEK 01/10 completed Not Available Not Available Not Available Zepbound 7.5 mg/0.5 mL subcutane ous pen injector Inject 7.5mg by subcutan eous route once weekly 10/15 completed Not Available Not Available Not Available Vitals Date Recorded Body height Body mass index (BMI) Body weight Systolic blood pressure Diastolic blood pressure Provider Name and Address Organization Details Last Updated DateTime 07/20/2023 162.56 cm 38.3 kg/m2 873458.1 g 113 mm[Hg] 75 mm[Hg] [facility] 4 17:36:56 Date Recorded Body height Body mass index (BMI) Body weight Systolic blood pressure Diastolic blood pressure Provider Name and Address Organization Details Last Updated DateTime 08/03/2023 162.56 cm 37.9 kg/m2 762937.9 1 g 119 mm[Hg] 56 mm[Hg] [facility] 4 12:14:34 Date Recorded Body height Body mass index (BMI) Body weight Systolic blood pressure Diastolic blood pressure Provider Name and Address Organization Details Last Updated DateTime 10/17/2023 162.56 cm 36.2 kg/m2 85883.99 g 120 mm[Hg] 60 mm[Hg] Emy Villalobos [facility] 4 17:13:31 Date Recorded Body height Body mass index (BMI) Body weight Systolic blood pressure Diastolic blood pressure Provider Name and Address Organization Details Last Updated DateTime 01/11/2024 162.56 cm 33.8 kg/m2 11240.7 g 109 mm[Hg] 70 mm[Hg] Nanette Rojoen [facility] 4 15:30:45 Date Recorded Body height Body mass index (BMI) Body weight Systolic blood pressure Diastolic blood pressure Provider Name and Address Organization Details Last Updated DateTime 07/29/2024 162.56 cm 29.7 kg/m2 80256.48 g 101 mm[Hg] 66 mm[Hg] Shilpa Shalom [facility] 5 17:56:08 Social History Question Answer Notes LastModified by Organizat ion Details LastModified Time Tobacco Smoking Status Never Smoker Nelly jacome, [facility] 07/20/2023 16:54:40 What Is Your Level Of Alcohol Consumption? Occasional [email or web address] Information not available 11/18/2019 Are You Blind Or Do You Have Difficulty Seeing? No [email or web address] Information not available 07/15/2022 What Is Your Level Of Caffeine Consumption? Occasional [email or web address] Information not available 07/15/2022 How Much Tobacco Do You Chew? None Information not available 05/02/2023 In The 14 Days Before Symptom Onset, Have You Had Close Contact With A Laboratory-confir med COVID-19 While That Case Was Ill? No [email or web address] Information not available 07/15/2022 In The 14 Days Before Symptom Onset, Have You Had Close Contact With A Person Who Is Under Investigation For COVID-19 While That Person Was Ill? No [email or web address] Information not available 07/15/2022 Have You Been To An Area Known To Be High Risk For COVID-19? No [email or web address] Information not available 07/15/2022 Are You Deaf Or Do You Have Serious Difficulty Hearing? No [email or web address] Information not available 07/15/2022 What Type Of Diet Are You Following? REGULAR [email or web address] Information not available 07/15/2022 What Is The Highest Grade Or Level Of School You Have Completed Or The Highest Degree You Have Received? [id number] Information not available 05/02/2023 What Is Your Occupation? [employer] Information not available 05/02/2023 Are There Any Guns Present In Your Home? Yes [email or web address] Information not available 05/02/2023 What Was The Date Of Your Most Recent Tobacco Screening? 05/02/2023 [email or web address] Information not available 07/20/2023 Do You Use Protection During Sex? No [email or web address] Information not available 05/02/2023 Do You Use Your Seat Belt Or Car Seat Routinely? Yes [email or web address] Information not available 07/15/2022 Do You Have Smoke And Carbon Monoxide Detectors In Your Home? Yes [email or web address] Information not available 07/15/2022 How Much Tobacco Do You Smoke? No [email or web address] Information not available 05/02/2023 Do You Feel Stressed (tense, Restless, Nervous, Or Anxious, Or Unable To Sleep At Night)? [id number] [email or web address] Information not available 05/02/2023 Do You Use Any Illicit Or Recreational Drugs? No [email or web address] Information not available 05/02/2023 Do You Use Sunscreen Routinely? Yes [email or web address] Information not available 07/15/2022 Have You Used IV Drugs? No [email or web address] Information not available 05/02/2023 Sex: Unknown Functional Status Question Answer Note LastModified by Organizat ion Details LastModified Time Do you have difficulty walking or climbing stairs? No [email or web address] Information not available 07/20/2023 Are you able to walk? YESWOREST [email or web address] Information not available 07/15/2022 Are you able to care for yourself? Yes Information not available 07/20/2023 Do you have difficulty dressing or bathing? No [email or web address] Information not available 07/20/2023 What is your exercise level? Moderate [email or web address] Information not available 05/02/2023 Mental Status None recorded. Family History Relationship Description Onset Age of this Age Resolved Age Notes LastModified by Organization Details LastModified Time Mother Hypertensive disorder [email or web address] Not available 07/18 11:33:06 Mother Hypercholest erolemia [email or web address] Not available 2022 17:10:38 Mother Diabetes mellitus [email or web address] Not available 2022 17:10:38 Maternal Grandmother Malignant tumor of breast Not available 2022 17:10:38 Father Hypercholest erolemia [email or web address] Not available 2022 17:10:38 Father Hypertensive disorder [email or web address] Not available 2022 17:10:38 Father Diabetes mellitus Not available 2022 17:10:38 Medical History Condition Response Allergies (Food, seasonal, environmental ) N Other N Drug/Latex Allergies/Reactions N Blood Transfusion N Breast Cancer N Dermatologic Disorders N Lung Disease N Defects or Inherited Disease N Breast Problem N Gestational Diabetes N Hematologic disorders N Anesthesia Complications N History of STI N Deep Vein Thrombosis N Polycystic ovary syndrome N Anxiety Disorder N Autoimmune disease N Arthritis N Polyps N Infertility N Acid Reflux (GERD) N History of abnormal pap N Cancer N Varicosities N Stroke N Neurologic/Epilepsy N Endometriosis N High Cholesterol N Fibromyalgia N Headaches N Kidney Disease N Heart Problems N Thyroid Problems N Kidney or Bladder Problems Y GI Problems N Eating Disorder N Anemia N Art (IVF or FET) N Psychiatric Illness N Ovarian Cancer N Diabetes N Pulmonary (TB, Asthma) N Hepatitis/Liver Disease N No Past Medical History N Eczema N Urinary Tract Infection N Abuse/Domestic Violence N Asthma N Trauma/Violence N Depression/ depression N Heart Disease N Pre-Eclampsia N Hypertension N Osteoporosis N Thrombophilias N Gynecological History Statement/Question Response Date of Last Mammogram Flow Light Date of LMP 07/01/2024 N Was last menstrual period normal N STIs/STDs N Date of control 08/17/2022 Desired Control Method None Abnormal Pap Y On BCP's at Conception? N HPV Vaccine N Duration of Flow (days) 5 Current Control Method BCPs Age at First Child 21 Are cycles usually normal Y Frequency of Cycle (Q days) 7 Sexually Active? Y Menses Monthly Y Date of DEXA bone scan Age of first menstrual cycle 11 Date of Last Pap Smear 07/20/2023 Sexual Problems? N LMP Definite N Obstetrics History GPAL:G 2 P 2 0 0 2 Type Value Full Term 2 Living 2 Total 2 Past Encounters Encounter ID Performer Location Encounter Start Date Encounter Closed Date Diagnosis/Indication Diagnosis SNOMED-CT Code Diagnosis ICD10 Code Diagnosis Note [id number] [facility] [address],[facility] [address] 11/06/2019 09:29:11 11/06/2019 12:15:15 Routine gynecologic examination done 2027514028 9101 Z01.419 [id number] Christelle Hansen [facility] [address],[facility] [address] 04/28/2021 10:22:59 04/28/2021 17:18:15 Abnormal uterine bleeding 9782273747 9100 N93.9 Pt has had 1 episode of bleeding 2 weeks after her cycle the bleeding was light. UPT today was negative. Since this has only happened one time we will wait to see what her next 1-2 cycles look like. If she has any bleeding other than normally spaced 26-30 day cycle she will need further evaluation . Last she was able to conceive after losing a small amount of weight with diet and exercise. I have encouraged that again along with some resistance or low impact weight training since she feels she has not had recent success with weight loss. [id number] Korin Mcfarland CNM [facility] [address],[place] [address] 07/15/2022 14:47:39 07/15/2022 16:27:01 Gynecologic examination 72992867 Z01.419 [id number] RANJIT Burnham [facility] [address],[place] [address] 08/12/2022 11:07:24 08/12/2022 14:22:20 Obesity 690808305 E66.9 31yo Presents for initial weight management consultati onHer weight gain has been associated with and job changesShshanna is currently at her highest weight, 253lbs BMI 43Eats breakfast, eats 3 meals per day. Drinks water/coff ee/soda occasional lyOften eats out of boredom or stressShe has not had much time to exercise, walks outside when weather is niceShe sleeps 6-8 hours per night. Snores occasional ly. Sometimes feels rested Past medical hx : High cholestero lPast surgical hx : c/s, kidney stone removal, hand procedureM edications : vitamin DFam hx : Obesity, Diabetes, HTN Menstrual hx WNL, her partner is considerin g vasectomy for BCDeclines any symptoms of depression or anxiety We discussed a detail health hx today. Discussed the weight management program in-depth and next steps-Rece ntly had comprehens padmini labs done, reviewed this. Low vitamin D - on supplement s. Elevated Lipid levels-Exe rcise recommenda tions discussed, 150 minutes of moderate/i ntense exercise per week, with at least 2 strength training sessions per week. 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 She will check her insurance for coverage. We will meet back in 2 weeks to discuss medication options further Time spent in visit is a total of 50 mins with at least 50% of visit consisting of counseling and review of plan of care. [id number] RANJIT Burnham [facility] [address] [address] 08/25/2022 15:55:01 08/25/2022 17:38:05 Obesity 392879140 E66.9 Today we discussed obesity medication options in-depth, she does have insurance coverage for obesity medication s.discusse d R/B/SE/A of all optionsWe agreed to start Wegovy, 0.25mg SQ per weekShe denies any personal or family hx of thyroid cancer, denies any personal hx of pancreatit isRx sentContin ue to exercise! She has started strength trainingCo ntinue meeting with dieticianS he would like BC, we discussed all optionsDes eduardo ansari Discussed all control options in great detail. Pt would like to start POP. She is aware of the risks and benefits. She has contraindi cations to use of OCP or other estrogen containing hormonal therapy. Pt will start her pills on the first monday following the start of her period. She is aware it is not effective for control the first month. She is also aware of the importance of taking at the same time every day. Encouraged use of condoms as the pill does not protect against STD's. Will return in 3 months for med check. Consent was read and signed. Pt verbalized understand ing. Slynd samples givenRTC in 4 weeks Time spent in visit is a total of 40 mins with at least 50% of visit consisting of counseling and review of plan of care. [facility] [id number] Z30.9 [id number] Luna Rosales NICA [facility] [address],[place] [address] 09/22/2022 15:56:12 09/22/2022 16:26:49 Obesity 937646749 E66.9 31yo Presents for weight management follow-upS tarted wegovy at [facility], she has lost 4lbsDoing well, minimal SE. Some slight nausea that is manageable Normal bowel movementsS eeing automotive refinisher and making changesExe rcising 3 times per week, strength and cardio We agreed to increase to 0.5mg weekly. R/B/A/SE discussedR x sentRTC in 4 weeks for f/u Time spent in visit is a total of 20 mins with at least 50% of visit consisting of counseling and review of plan of care. [id number] Luna Rosales NICA [facility] [address],[place] [address] 10/20/2022 16:28:59 10/20/2022 17:34:03 Obesity 524603866 E66.9 31yo Presents for weight management follow-upd oing well on wegovy, lost 9lbs since [facility], about 14lbs overallDoi ng well, minimal SE. Some slight nausea that is manageable Normal bowel movementsS eeing automotive refinisher and making changesStr uggling to incorporat e exercise, she has a plan We agreed to increase to 1mg weekly. R/B/A/SE discussedR x sentRTC in 4 weeks for f/u Time spent in visit is a total of 20 mins with at least 50% of visit consisting of counseling and review of plan of care. [id number] Luna Rosales NICA [facility] [address],[place] [address] 11/25/2022 11:35:45 11/25/2022 14:01:25 Obesity 645100368 E66.9 doing well on wegovy, continues to loose weightwe discussed her diet and exercise todaywe agreed to increase wegovy dose, R/B/A discussedR TC in 4 weeks Contracept ion care management 910366693 Z30.9 needs refill of POP, rx sent Time spent in visit is a total of 20 mins with at least 50% of visit consisting of counseling and review of plan of care. [id number] Luna Rosales NICA [facility] [address],[place] [address] 12/29/2022 16:23:25 12/29/2022 16:47:42 Obesity 993676818 E66.9 down 4lbs this monthdoing wellcontin ues to exercise, continues to make healthier choicesRef ills sentR/B/A discussedR TC in 4 weeks Time spent in visit is a total of 20 mins with at least 50% of visit consisting of counseling and review of plan of care. Contracept ion care management 676257028 Z30.9 refills sent [id number] Luna Rosales NICA [facility] [address],[place] [address] 01/19/2023 11:48:59 01/19/2023 12:24:21 Vitamin D deficiency 38505013 E55.9 recheck vitamin D ordered Obesity 410041151 E66.9 doing well, no negative SElost 5lbs last monthexerc ising, eating healthywe agreed to go up to 2.4mg weekly, rx sentprecau tions discussedR TC in 4 weeks Time spent in visit is a total of 20 mins with at least 50% of visit consisting of counseling and review of plan of care. [id number] Luna Rosales NICA [facility] [address],[place] [address] 02/10/2023 11:52:36 02/10/2023 13:07:29 Obesity 953332804 E66.9 doing well on current dose of wegovyno negative SE, desires to continueen couraged to continue exercise, she has a plan to incorporat e more strength exercises - just bought resistance bands.RTC in 3 months or sooner if needed Time spent in visit is a total of 20 mins with at least 50% of visit consisting of counseling and review of plan of care. [id number] RANJIT Burnham [facility] [address] [address] 05/02/2023 17:10:15 05/03/2023 17:48:02 Obesity 514380616 E66.9 Discussed her recent cholecyste ctomyrecom mended to continue to hold the wegovyneed s to f/u with GI for clearance on when to restart the medication post procedurei f she restarts medication once cleared, will need to restart at lowest doseagain discussed the risk/benef its of the medication recommende d automotive refinisher f/u, continue to make healthy diet changesonc e cleared to exercise, recommende d incorp intentiona l exercise Time spent in visit is a total of 30 mins with at least 50% of visit consisting of counseling and review of plan of care. [id number] Godwin Sullivan MD [facility] [address] [address] 07/20/2023 16:53:28 07/21/2023 06:43:54 Gynecologic examination [id number] Z01.419 Annual gynecologi karlene exam performed. Patient will come back in a year unless there are new symptoms. Suggest Calcium with Vitamin D if not eating in diet. Patient advised to get annual flu shot. Recommend yearly physicals and preform monthly breast exams. Genetic testing is available for patients with family history of cancer. Engage in safe sexual practices, use condoms. Encouraged to have daily exercise. Avoid tobacco and illicit drugs, moderation of alcohol. If BMI greater than 25 dietary consult advised. If you have any questions please call or email. Pap smear-toda y laboratory evaluation - done [id number] RANJIT Burnham [facility] [address] [address] 08/03/2023 11:44:29 08/03/2023 14:16:20 Obesity [id number] E66.9 We agreed to increase zepbound dose, 5mg SQ per week x 4 weeksrx sent, r/b/a reviewedco ntinue with regular exercise, healthy eating as discussedq uestions answeredco ntinue to monitor periods, if irregulari ties continue return for further evaluation Time spent in visit is a total of 25 mins with at least 50% of visit consisting of counseling and review of plan of care. Irregular periods [id number] N92.6 Contracept ion care management [id number] Z30.9 refills sent [id number] RANJIT Burnham [facility] [address] [address] 10/17/2023 17:06:48 10/18/2023 15:22:51 Obesity [id number] E66.9 Doing welldiscus sed her exercise routine/ex ercise recommenda tionsdiscu ssed healthy diet choices, adequate protein intake, recommende d f/u with dieticianr efills of zepbound sent - r/b/a reviewedwi ll update fasting labsmed check in 4 months Time spent in visit is a total of 20 mins with at least 50% of visit consisting of counseling and review of plan of care. Adult heal th examination [id number] Z00.00 [id number] Luna Rosales NICA [facility] [address] [address] 01/11/2024 15:08:14 01/12/2024 12:24:47 Obesity [id number] E66.9 Refills sent, r/b/a reviewedco ntinue regular exerciseco ntinue healthy diet choicesque stions answeredf/ u in 3-4 months for med check Contracept ion care management [id number] Z30.9 doing well on slynd, refills sentr/b/a reviewed Time spent in visit is a total of 25 mins with at least 50% of visit consisting of counseling and review of plan of care. [id number] Godwin Sullivan MD [facility] [address] [address] 07/29/2024 17:29:40 07/29/2024 18:25:54 Contraception care management [id number] Z30.9 Gynecologi c examination [id number] Z01.419 Z11.51 Annual gynecologi karlene exam performed. Patient will come back in a year unless there are new symptoms. Suggest Calcium with Vitamin D if not eating in diet. Patient advised to get annual flu shot. Recommend yearly physicals and preform monthly breast exams. Genetic testing is available for patients with family history of cancer. Engage in safe sexual practices, use condoms. Encouraged to have daily exercise. Avoid tobacco and illicit drugs, moderation of alcohol. If BMI greater than 25 dietary consult advised. If you have any questions please call or email. Pap smear-toda y Health Concerns Section Related Observation LastModified by Organization Detai ls LastModified Time None Recorded Concern Status LastModified by Organization Details LastModified Time None Recorded Advance Directives Directive None Recorded Payers Encounter Date Sequence Insurance Name Policy Number Policy Bass Covered Member ID Bass Member ID Guarantor Name 07/20/2023 2 [place] [id number] Jim N Feenstra [id number] Shilpa N Feenstra 07/20/2023 1 [facility] (PPO) [facility] Shilpa N Feenstra [id number] Shilpa N Feenstra 08/03/2023 2 [place] [id number] Jim N Feenstra [id number] Shilpa N Feenstra 08/03/2023 1 [facility] (PPO) [facility] Shilpa N Feenstra [id number] Shilpa N Feenstra 10/17/2023 2 [place] [id number] Jim N Feenstra [id number] Shilpa N Feenstra 10/17/2023 1 [facility] (PPO) [facility] Shilpa N Feenstra [id number] Shilpa N Feenstra 01/11/2024 2 [place] [id number] Jim N Feenstra [id number] Shilpa N Feenstra 01/11/2024 1 [facility] (PP[facility]) [facility] Shilpa N Feenstra [id number] Shilpa N Feenstra 07/29/2024 2 [place] [id number] Jim N Feenstra [id number] Shilpa N Feenstra 07/29/2024 1 [facility] Shilpa Sun [id number] Shilpa Sun Notes Date Note Type Note Provider Name and Address Organization Details Recorded Time 07/20/2023 text/html Annual GYNReport ed bypatient.History:no gynecologic complaints Menstrual cycle:Normal menses Urinary symptoms:No hematuria; No incontinence Vulva:No genital lesion Vagina:Normal vaginal discharge Breast:No breast pain; No breast lump Current Contraception:Satisf ied with current contraception; Oral contraceptives Sexual complaints:No sexual complaints; No pain during intercourse Psychological symptoms:No depression; No anxiety Preventive measures:Encourage self breast examination; Encourage regular exercise Godwin uSllivan MD [address], [place], [address], [facility] 07/20/2023 18:03:17 08/03/2023 text/html 32yopresents for med checkstarted zepbound about 1 month ago. Was previously on Wegovy, had a cholecystectomy 04/2023 and had to stop wegovy. Was cleared by GI to restart wegovy (d/t lapse in medication needed to restart at the lowest dose) however wegovy has been out of stock at the lower doses. She switched to zepbound d/t availability.has noticed increased hunger/cravings, no longer feeling full after eating mealshas been eating out less, making food at home/making healthier choicesjust bought a treadmill to walk on while working at home, [facility] classeson elan for BC, did have 2 periods this month which is unusual for her RANJIT Burnham [address], [place], [address], [facility] 08/03/2023 14:07:30 10/17/2023 text/html 33yopresents for med checkon zepbound for weight managementdoing well, continues to loose weightdoes not express any negative SEcontinuing to make healthy lifestyle choices/changesexerc ising and eating healthystill feels like food noise is present at times even after eating her meals RANJIT Burnham [address], [place], [address], [facility] 10/18/2023 13:17:26 01/11/2024 text/html 33yopresents for med checkon zepbound - doing well. Did have some slight nausea when starting the 15mg dose but that has since resolved. No issues. Food noise/cravings have decreased.has been finding it hard to go to the gym lately - but has a plan to restart goingmaking positive diet changesdesires to continue zepbound at current dosedoing well on slynd for BC, needs refills RANJIT Burnham [address], [place], [address], [facility] 01/11/2024 17:49:19 07/29/2024 text/html Annual GYNReport ed bypatient.History:no gynecologic complaints Menstrual cycle:Irregular cycle intervals Urinary symptoms:No hematuria Vulva:No genital lesion Vagina:Normal vaginal discharge Breast:No breast pain; No breast lump Sexual complaints:No sexual complaints; No pain during intercourse Menopausal Symptoms:No menopausal symptoms Psychological symptoms:No depression; No anxiety Preventive measures:Encourage self breast examination; Encourage regular exercise Godwin Sullivan MD [address], [place], [address], [facility] 07/29/2024 18:25:31 OBGyn Episode Ob Episode Information Episode Created Date Number of Fetuses Patient Bloodtype Patient rh Status Prepregnancy Weight lbs Domestic Partner Domestic Partner Phone Father Name Civil Transportation Engineer Status 11/18/19 20 1 CLOSED Fetus Data First Name Last Name Admitted to NICU Weight (g) Sex Living Outcome Pediatric Complications Fetus ID Race Codes Race Delivery Type 3628.73 6 M Full Term 1132 Repeat Rc Calculation Initial Rc Date Initial Exam Date Initial Exam Provider Initial Ultrasound Date Last Menstrual Period Date Ultra Sound Weeks Gestation 0 Eighteen To Twenty Week Rc Update Ultra Sound Date Fundal Height At Umbil Quickening Date Ultra Sound Latest Weeks Gestation Final Rc Confirmed By Final Rc Confirmed Date Final Rc Date Ultra Sound Latest Days Gestation 0 0 Menstrual History Last Menstrual Date Menses Monthly On Bcp Conception Prior Menses Frequency Hcg Plus Date Menarche Onset Age Delivery Information Delivery Date Delivery Type Labor Anesthesia Weeks Gestation Incision Type Labor Labor Length Hrs Delivered By Post Complications Tubal Sterilization Discharge Date Comments 9 Discharge Information Feeding Method Contraceptive Method Maternal HG B and HCT Levels Ob Episode Information Episode Created Date Number of Fetuses Patient Bloodtype Patient rh Status Prepregnancy Weight lbs Domestic Partner Domestic Partner Phone Father Name Civil Transportation Engineer Status 11/18/19 20 1 CLOSED Fetus Data First Name Last Name Admitted to NICU Weight (g) Sex Living Outcome Pediatric Complications Fetus ID Race Codes Race Delivery Type 3628.73 6 M Full Term 1131 Primary Rc Calculation Initial Rc Date Initial Exam Date Initial Exam Provider Initial Ultrasound Date Last Menstrual Period Date Ultra Sound Weeks Gestation 0 Eighteen To Twenty Week Rc Update Ultra Sound Date Fundal Height At Umbil Quickening Date Ultra Sound Latest Weeks Gestation Final Rc Confirmed By Final Rc Confirmed Date Final Rc Date Ultra Sound Latest Days Gestation 0 0 Menstrual History Last Menstrual Date Menses Monthly On Bcp Conception Prior Menses Frequency Hcg Plus Date Menarche Onset Age Delivery Information Delivery Date Delivery Type Labor Anesthesia Weeks Gestation Incision Type Labor Labor Length Hrs Delivered By Post Complications Tubal Sterilization Discharge Date Comments 2 Discharge Information Feeding Method Contraceptive Method Maternal HG B and HCT Levels
--- OUTSIDE RECORDS SUMMARY | 2024-09-03 10:41 | XMS_ITS | Clinical Summary ---
Author Organization [facility] Address [address] [place] [address] Care Team Providers Care Regional Retail Sales Manager Name Role Phone Valentin Benitez MD Primary Care Provider [phone] Allergies No known active allergies Medications No known medications Active Problems Problem Noted Date Diagnosed Date Renal stone 06/15/2021 Social History Tobacco Use Types Packs/Day Years Used Date Smoking Tobacco: Never Smokeless Tobacco: Never Alcohol Use Standard Drinks/Week Comments Yes 0 (1 standard drink = 0.6 oz pur e alcohol) social Comments No Sex and Gender Information Value Date Recorded Sex Assigned at Not on file Legal Sex Female 3:21 PM AGENT PRODUCER Gender Identity Not on file Sexual Orientation Not on file Last Filed Vital Signs Vital Sign Reading Time Taken Comments Blood Pressure 115/75 06/15/2021 10:54 AM AGENT PRODUCER Pulse 61 06/15/2021 10:54 AM AGENT PRODUCER Temperature 36.7 C (98.1 F) 06/15/2021 10:54 AM AGENT PRODUCER Respiratory Rate 16 06/15/2021 10:5 4 AM AGENT PRODUCER Oxygen Saturation 98% 06/15/2021 10: 54 AM AGENT PRODUCER Inhaled Oxygen Concentration - - Weight 107.1 kg (236 lb 1.8 oz) 06/15/2021 7:25 AM AGENT PRODUCER Height 162.6 cm (5' 4 ) 06/08/2021 2:49 PM AGENT PRODUCER Body Mass Index 40.53 06/08/2021 2:49 PM AGENT PRODUCER Plan of Treatment Health Maintenance Due Date Last Done Comments Cervical Cancer Screening Pa p Smear (Age 30 to 64) Every 3 Years 1989 Annual Physical 1992 Hepatitis C 10/07/2007 DTaP, Tdap and Td Vaccines ( 1 - Tdap) 2008 Hepatitis B Vaccines (1 of 3 - 19+ 3-dose series) 2008 Cervical Cancer Screening Pa p with HPV Testing (Age 30 to 64) Every 5 Years 10/07/2019 Cervical Cancer Screening wi th HPV 10/07/2019 COVID-19 Vaccine (3 - 2023-2 5 season) 2024 11/30/2020, 11/09/2020 Influenza Adult (#1) 2024 04/24/2019 HPV Vaccines Aged Out No longer eligi ble based on patient's age to complete this topic Meningococcal B Vaccine Aged Out No l onger eligible based on patient's age to complete this topic Meningococcal Vaccine Aged Out No ivan gaurav eligible based on patient's age to complete this topic Pneumococcal Vaccine: Pediatrics (0 to 5 Years) and At-Risk Patients (6 to 64 Years) Aged Out No longer eligible b ased on patient's age to complete this topic RSV Immunizations Under 20 Months Aged Out No longer eligible b ased on patient's age to complete this topic Insurance [facility] Care Teams Regional Retail Sales Manager Relationship Specialty Start Date End Date Valentin Benitez MD PCP - General INTERNAL MEDICINE 06/09/21
--- OUTSIDE RECORDS SUMMARY | 2024-09-03 10:41 | XMS_ITS | Data Portability ---
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 Space Physicist variances may occur. Despite proofreading, typographical errors may occur. Occasional wrong-word or '[id number]' substitutions may have occurred due to the inherent limitations of voice recording. Read the chart carefully and recognize, using context, where substitutions have occurred. [email or web address] Not available 08/29/2024 18:14:12 Plan of Treatment Reminders Order Date Submit Date Provider Last Modified By Organization Details Last Modified Time Details Appointments Any 15 2024 03:15P Dion Benitez MD Not available Not available Not available Lab C-reactiv e protein, quantitat bowen, serum or plasma 2024 025 [facility] (Lab), [address] [place] [address], [phone], 09/02/2024 17:35:26 CBC 2024 025 [facility] (Lab), [address] [place] [address], [phone], 09/02/2024 17:35:26 CMP, serum or plasma 2024 [facility] (Lab), [address], [place], [address], 09/02/2024 17:35:27 PT/PTT, plasma 2024 [facility] (Lab), [facility], [place], [address], 09/02/2024 17:30:47 glycohemo globin, total, blood 2024 [facility] (Lab), [facility] [facility], [place], [address], 09/02/2024 17:30:47 Referral podiatris t referral - Please call patient to schedule. 2024 MARK De La Cruz DPM, [address], [place], [address], 08/08/2024 17:14:26 Procedures None recorded. Surgeries None recorded. Imaging electroca rdiogram, routine ECG, 12 leads min 2024 [facility], [address], [place], [address], 09/02/2024 17:30:46 XR, chest, 2 view 2024 [facility] (Outpatient Orders), [address], [place], [address], 09/02/2024 17:15:42 XR, foot, 3 or more view 2024 025 [email or web address] [facility] [place], [address], [place], [address], 09/02/2024 17:13:32 XR, foot, 3 or more view 2024 025 [email or web address] [facility] [place], [address], [place], [address], 09/02/2024 17:13:31 Medication Orders venlafaxi ne ER 37.5 mg capsule,e xtended release 24 hr 2024 025 [email or web address] 2 [id number], [address], [place], [id number], 09/02/2024 13:50:40 Patient TargetsNo targets recorded. Patient InstructionsNo instructions recorded. 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 Referring Physician: Guicho Benitez, Internal Medicine, Encounter Date: 08/08/2024 Results Created Date Observation Date Name Description Value Unit Range Abnormal Flag Note LastModifiedBy Organization Detail LastModifiedTime 08/13/19 25 08/13/2024 COMPR EHENS BOWEN METAB OLIC PANEL sodium 138 mmol/ L 137-14 5 Not Available [facility] (Lab) [address] [place], [address], 08/13/2024 20:30:15 08/13/19 25 08/13/2024 COMPR EHENS BOWEN METAB OLIC PANEL potassium 3.8 mmol/ L 3.5-5. 1 Not Available [facility] (Lab) [address] [place], [address], 08/13/2024 20:30:15 08/13/19 25 08/13/2024 COMPR EHENS BOWEN METAB OLIC PANEL chloride 106 mmol/ L 98-107 Not Available [facility] (Lab) [address] [place], [address], 08/13/2024 20:30:15 08/13/19 25 08/13/2024 COMPR EHENS BOWEN METAB OLIC PANEL carbon dioxide 25 mmol/ L 22-30 Not Available [facility] (Lab) [address] [place], [address], 08/13/2024 20:30:15 08/13/19 25 08/13/2024 COMPR EHENS BOWEN METAB OLIC PANEL anion gap 10.8 mmol/ L 14-22 low Not Available [facility] (Lab) [address] [place], [address], 08/13/2024 20:30:15 08/13/19 25 08/13/2024 COMPR EHENS BOWEN METAB OLIC PANEL glucose 83 mg/dL 70-99 Not Available [facility] (Lab) [address] [place], [address], 08/13/2024 20:30:15 08/13/19 25 08/13/2024 COMPR EHENS BOWEN METAB OLIC PANEL BUN 21 mg/dL 8-19 high Not Available [facility] (Lab) [address] [place], [address], 08/13/2024 20:30:15 08/13/19 25 08/13/2024 COMPR EHENS BOWEN METAB OLIC PANEL creatinine 0.73 mg/dL 0.66-1 .25 Not Available [facility] (Lab) [address] [place], [address], 08/13/2024 20:30:15 08/13/19 25 08/13/2024 COMPR EHENS BOWEN METAB OLIC PANEL GFR >60 Refer ence Range : [place] [facility] GFR Healt hy Adult : >60 mL/mi n/1.7 3 m2 Chron ic Kidne y Disea se: 15-60 mL/mi n/1.7 3 m2 Kidne y Failu re: <15/m L/min /1.73 m2 www.n iddk. nih.g ov The MDRD study equat ion has not been valid ated in child xochitl <18 years of age; pregn ant women ; the elder ly >85 years of age; or in some racia l or ethni c subgr oups, such as Hispa nics. Outsi de the valid ated dakota eters , estim ated GFR is less accur ate, requi ring clini bon judgm ent on a case- by-ca se basis . Clini bon inter preta tion for other races and ages must be made by the clini gail. The MDRD study equat ion has not been valid ated for the evalu ation of serum creat inine relat ed to nutri loy l statu s or medic ation usage . For perso ns <18 years of age, a pedia tric GFR calcu lator is avail able on the [facility] websi te: https ://brayden w.kid jose luis.o rg/pr ofess ional s/kdo qi/gf r_cal culat or Not Available [facility] (Lab) [address] [place], [address], 08/13/2024 20:30:15 08/13/19 25 08/13/2024 COMPR EHENS BOWEN METAB OLIC PANEL alkaline phosphatase 74 U/L 38-126 Not Available [facility] (Lab) [address] [place], [address], 08/13/2024 20:30:15 08/13/19 25 08/13/2024 COMPR EHENS BOWEN METAB OLIC PANEL alanine aminotransfe rase 24 U/L 0-35 Not Available [facility] (Lab) [address] [place], [address], 08/13/2024 20:30:15 08/13/19 25 08/13/2024 COMPR EHENS BOWEN METAB OLIC PANEL aspartate aminotransfe rase 26 U/L 15-37 Not Available [facility] (Lab) [address] [place], [address], 08/13/2024 20:30:15 08/13/19 25 08/13/2024 COMPR EHENS BOWEN METAB OLIC PANEL bilirubin, total 0.90 mg/dL 0.20-1 .30 Not Available [facility] (Lab) [address] [place], [address], 08/13/2024 20:30:15 08/13/19 25 08/13/2024 COMPR EHENS BOWEN METAB OLIC PANEL calcium 9.1 mg/dL 8.4-10 .2 Not Available [facility] (Lab) [address] [place], [address], 08/13/2024 20:30:15 08/13/19 25 08/13/2024 COMPR EHENS BOWEN METAB OLIC PANEL total protein 7.2 g/dL 6.3-8. 2 Not Available [facility] (Lab) [address] [place], [address], 08/13/2024 20:30:15 08/13/19 25 08/13/2024 COMPR EHENS BOWEN METAB OLIC PANEL albumin 4.2 g/dL 3.4-5. 0 Not Available [facility] (Lab) [address] [place], [address], 08/13/2024 20:30:15 08/13/19 25 08/13/2024 COMPR EHENS BOWEN METAB OLIC PANEL globulin 3.0 g/dL 2.6-4. 2 Not Available [facility] (Lab) [address] [place], [address], 08/13/2024 20:30:15 08/13/19 25 08/13/2024 COMPR EHENS BOWEN METAB OLIC PANEL A/G ratio 1.4 ratio 1.0-2. 0 Not Available [facility] (Lab) [address] [place], [address], 08/13/2024 20:30:15 08/13/19 25 08/13/2024 LIPID PANEL cholesterol 161 mg/dL 140-19 9 NIH MELISSA NSUS RECOM MENDA TION FOR NOHEMY STERO L: ADULT CHILD LOW RISK: <200 <170 BORDE RLINE : <200- 239 ----- HIGH RISK: >240 >200 Not Available [facility] (Lab) [address] [place], [address], 08/13/2024 20:30:39 08/13/19 25 08/13/2024 LIPID PANEL triglyceride s 64 mg/dL 0-150 NIH MELISSA NSUS REPOR T RECOM MENDA TION FOR TRIGL YCERI AUGUSTO: ADULT CHILD LOW RISK: <150 ----- BODER LINE: 150-1 99 ----- HIGH RISK: >200 ----- Not Available [facility] (Lab) [address] [place], [address], 08/13/2024 20:30:39 08/13/1908/13/2024 LIPID PANEL HDL cholesterol 43 mg/dL 40- Not Available [facility] (Lab) [address] [place], [address], 08/13/2024 20:30:39 08/13/19 25 08/13/2024 LIPID PANEL LDL cholesterol, calculated 105 mg/dL 0-130 NIH MELISSA NSUS REPOR T RECOM MENDA TIONS FOR LDL: ADULT CHILD LOW RISK <130 <110 (OPTI MAL LDL) <100 ----- BORDE RLINE : 130-1 59 ----- HIGH RISK: >160 >130 A TRIGL YCERI DE RESUL T >400 INVAL IDATE S THE CALCU LATIO N FOR LDL FRACT IONAT ION - THE LDL RESUL T WILL NOT BE REPOR CHRISTIANO. Not Available [facility] (Lab) [address] [place], [address], 08/13/2024 20:30:39 04/22/20 23 04/22/2023 CT, abdom en + pelvi s, w/ contr ast No observ ation record ed. [email or web address] [facility] [address], [place], [address], 04/24/2023 12:59:36 09/02/19 25 XR, foot, 3 or more view No observ ation record ed. [email or web address] [facility] [place] [address], [place], [address], 09/02/2024 17:13:28 09/02/19 25 XR, foot, 3 or more view No observ ation record ed. [email or web address] [facility] [place] [address], [place], [address], 09/02/2024 17:13:16 Result Notes None recorded. Problems Name Problem SNOMED Code Status Onset Date Resolution Date Notes Provider Name and Address Organization Details Recorded Time Rectal hemorrhag e 34015919 Completed Not Available [facility] 3 16:26:19 Insomnia 419308615 Active Aylin Stmelvina n, RMA null, [place] [facility] [place] [facility] 5 16:10:04 Sinusitis 56774075 Completed Not Available [facility] 3 16:26:19 Migraine 07159229 Active Aylin Stufflebea n, RMA null, [place] [facility] [place] [facility] 5 16:10:02 Obesity 069069926 Active Aylin Stufflebea n, RMA null, [place] [facility] 5 16:10:00 Kidney stone 95941451 Active 2020 Aylin Stufflebea n, RMA null, [place] [facility] 5 16:10:03 Herpes simplex 49729359 Active 2023 Aylin Stufflebea n, RMA null, [place] [facility] 5 16:10:07 Anxiety 65671484 Active 2024 Guicho Benitez MD [address], [place] [address], [place], [address] , [place] [facility] 5 16:41:36 Bunion 526839949 Active 2024 Guicho Benitez MD [address], [facility] [address], [place], [address] , [facility] [employer] [facility] 5 16:44:42 Pain in left foot 20161025452 9107 Active 2024 Rusty De La Cruz DPM [address], [address], [place], [address] , [facility] [employer] [facility] 5 18:14:26 Mixed anxiety and depressiv e disorder 750091382 Active 2024 Beatriz Graf LPN null, [facility] [employer] 5 13:50:11 Pre-surge ry testing Active 2024 Rusty De La Cruz DPM [address], [address], [place], [address] , [facility] [employer] 5 17:07:32 Problem Notes None recorded. Procedures Surgical History Date Name Laterality Status Provider Name and Address Organization Details Recorded Time Kidney Stones completed Not Available [facility] 09/14/2022 16:25:51 section completed Not Available [facility] 09/14/2022 16:25:51 Cholecystectomy completed Barbara Quinonez [facility] [employer] 08/29/2024 16:46:06 Carpal tunnel surgery completed Barbara Quinonez [facility] 08/29/2024 16:46:14 Imaging Results Imaging Date Name Status LastModified by Organiz ation Details LastModified Time 04/22/2023 CT, abdomen + pelvis, w/ contrast completed [address], [place], [address], 04/24/2023 12:59:36 09/02/2024 XR, foot, 3 or more view completed fei [facility] [place] [address], [place], [address], 09/02/2024 17:13:28 09/02/2024 XR, foot, 3 or more view completed fei [facility] [place] [address], [place], [address], 09/02/2024 17:13:16 Procedure Notes None recorded. Medical Equipment None Reported. Allergies No known drug allergies Medications Name Sig Start Date Stop Date Status Note LastModified by Organization Details LastModified Time amoxicill in 500 mg capsule Take 1 capsule 3 times a day by oral route. active Not Available Not Available No t Available venlafaxi ne ER 37.5 mg capsule,e xtended release 24 hr Take 1 capsule every day by oral route. 09/02 completed Not Available Not Available Not Available venlafaxi ne ER 75 mg capsule,e xtended release 24 hr Take 1 capsule every day by oral route. 2024 active Not Available Not Available Not Avai lable benzonata te 200 mg capsule Take 1 capsule 3 times a day by oral route. active Not Available Not Available No t Available valacyclo vir 1 gram tablet Take 2 tablets every 12 hours by oral route for 1 day, for fever blisters . 08/08 completed per 11/08/23 patient case Not Available Not Available Not Available hydrocodo ne 5 mg-acetam inophen 325 mg tablet 09/25 completed Not Available Not Available Not Available penicilli n V potassium 500 mg tablet 02/13 completed Not Available Not Available Not Available amoxicill in 875 mg tablet 08/29 completed Not Available Not Available Not Available tamsulosi n 0.4 mg capsule 09/25 completed Not Available Not Available Not Available Kenalog 10 mg/mL suspensio n for injection In office injectio n administ ered by the provider 09/25 completed NDC: 0003-049 420 Not Available Not Available Not Available cephalexi n 500 mg capsule Take 1 capsule every 6 hours by oral route. active Not Available Not Available No t Available diazepam 10 mg tablet 09/25 completed Not Available Not Available Not Available ondansetr on 4 mg disintegr ating tablet TAKE 2 TABLETS EVERY 12 HOURS BY TRANSLIN GUAL ROUTE NEEDED FOR NAUSEA active Not Available Not Available No t Available lidocaine (PF) 10 mg/mL (1 %) injection solution In office injectio n administ ered by the provider 09/25 completed NDC: 0409-427 6-17 Not Available Not Available Not Available cholecalc iferol (vitamin D3) 1,250 mcg (50,000 unit) capsule TAKE 1 CAPSULE EVERY WEEK BY ORAL ROUTE. 08/29 completed Not Available Not Available Not Available Aurovela Fe 1.5/30 (28) 1.5 mg-30 mcg (21)/75 mg (7) tablet active Not Available Not Available Not Available Slynd 4 mg (28) tablet 08/29 completed Not Available Not Available Not Available Slynd once a day 08/29 completed Not Available Not Available Not Available Zepbound 10 mg/0.5 mL subcutane ous pen injector 09/02 completed Not Available Not Available Not Available Zepbound 15 mg/0.5 mL subcutane ous pen injector active Not Available Not Available Not Available Zepbound 12.5 mg/0.5 mL subcutane ous pen injector 09/02 completed Not Available Not Available Not Available Zepbound 7.5 mg/0.5 mL subcutane ous pen injector Inject 1 mL every week by subcutan eous route. 09/02 completed Not Available Not Available Not Available Vitals Date Recorded Body mass index (BMI) Body mass index (BMI) Body height Body height Body weight Body weight Provider Name and Address Organization Details Last Updated DateTime 09/14/2022 40.3 kg/m2 41.2 kg/m2 162.56 cm 162.56 cm 814560. 21 g 656900. 17 g Not Available [facility] 3 16:26:05 Date Recorded Body weight Body temperature Body mass index (BMI) Body height Heart rate Oxygen saturation Oxygen saturation in Arterial blood by Pulse oximetry Systolic blood pressure Diastolic blood pressure Provider Name and Address Organization Details Last Updated DateTime 4 95442.8 1 g 97.5 [degF] 35.9 kg/m2 162.56 cm 96 /min 98 % 98 % 110 mm[Hg] 74 mm[Hg] SNEHA Flood [place] [facility] [place] [employer] [facility] 4 15:58:50 Date Recorded Body height Body mass index (BMI) Body weight Body temperature Heart rate Oxygen saturation Oxygen saturation in Arterial blood by Pulse oximetry Systolic blood pressure Diastolic blood pressure Provider Name and Address Organization Details Last Updated DateTime 5 162.56 cm 29.5 kg/m2 37387.8 9 g 97.2 [degF] 97 /min 98 % 98 % 116 mm[Hg] 70 mm[Hg] Aylin Urena SNEHA love [facility] [employer] [facility] 5 16:09:22 Date Recorded Body height Body mass index (BMI) Body weight Heart rate Respiratory rate Oxygen saturation Oxygen saturation in Arterial blood by Pulse oximetry Systolic blood pressure Diastolic blood pressure Provider Name and Address Organization Details Last Updated DateTime 5 162.56 cm 28.8 kg/m2 53415.5 2 g 104 /min 14 /min 99 % 99 % 117 mm[Hg] 59 mm[Hg] Barbara Quinonez [facility] 5 16:29:19 Social History Question Answer Notes LastModified by Organizat ion Details LastModified Time Tobacco Smoking Status Never Smoker Barbara jacome [facility] 08/29/2024 16:45:55 Do You Have An Advance Directive? No MIGRATION.[id number] Information not available 09/14/2022 What Is Your Level Of Alcohol Consumption? Occasional MIGRATION.696712 5703 Information not available 09/14/2022 If You Are , What Was Your Level Of Alcohol Consumption Prior To ? None Information not available 08/29/2024 Are You Blind Or Do You Have Difficulty Seeing? No MIGRATION.407472 2729 Information not available 09/14/2022 What Is Your Level Of Caffeine Consumption? Occasional MIGRATION.809919 1130 Information not available 09/14/2022 How Much Tobacco Do You Chew? None MIGRATION.276899 9711 Information not available 09/14/2022 In The 14 Days Before Symptom Onset, Have You Had Close Contact With A Laboratory-confir med COVID-19 While That Case Was Ill? No MIGRATION.713295 9713 Information not available 09/14/2022 In The 14 Days Before Symptom Onset, Have You Had Close Contact With A Person Who Is Under Investigation For COVID-19 While That Person Was Ill? No MIGRATION.059937 0591 Information not available 09/14/2022 Are You Deaf Or Do You Have Serious Difficulty Hearing? No MIGRATION.113575 8173 Information not available 09/14/2022 What Type Of Diet Are You Following? REGULAR MIGRATION.852524 8967 Information not available 09/14/2022 Which Illicit Or Recreational Drugs Have You Used? None MIGRATION.315902 0707 Information not available 09/14/2022 What Is The Highest Grade Or Level Of School You Have Completed Or The Highest Degree You Have Received? 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 No MIGRATION.872041 3476 Information not available 09/14/2022 What Is The Fluoride Status Of Your Home? Unknown MIGRATION.153718 4411 Information not available 09/14/2022 Are There Any Guns Present In Your Home? Yes MIGRATION.169588 4560 Information not available 09/14/2022 Do You Use Insect Repellent Routinely? Yes MIGRATION.819056 8202 Information not available 09/14/2022 Where Do You Live? [facility] MIGRATION.478394 5023 Information not available 09/14/2022 Do You Have A Medical Power Of Sales Exec? No MIGRATION.430839 9797 Information not available 09/14/2022 What Was The Date Of Your Most Recent Tobacco Screening? 08/29/2024 Information not available 08/29/2024 Have You Ever Been Counseled For Unhealthy Alcohol Use? No Information not available 08/29/2024 Do You Have Any Pets? Yes MIGRATION.640756 2066 Information not available 09/14/2022 What Is Your Relationship Status? MIGRATION.660090 4802 Information not available 09/14/2022 Do You Use Your Seat Belt Or Car Seat Routinely? Yes MIGRATION.812162 7384 Information not available 09/14/2022 Do You Have Smoke And Carbon Monoxide Detectors In Your Home? Yes MIGRATION.332094 4345 Information not available 09/14/2022 Are You Passively Exposed To Smoke? No MIGRATION.513140 4174 Information not available 09/14/2022 Are There Any Smokers In Your House? Yes MIGRATION.713795 8198 Information not available 09/14/2022 Do You Feel Stressed (tense, Restless, Nervous, Or Anxious, Or Unable To Sleep At Night)? [id number] MIGRATION.825304 9818 Information not available 09/14/2022 Do You Use Any Illicit Or Recreational Drugs? No MIGRATION.185212 2497 Information not available 09/14/2022 Do You Use Sunscreen Routinely? Yes MIGRATION.702776 8075 Information not available 09/14/2022 Has Tobacco Cessation Counseling Been Provided? No Information not available 08/29/2024 Have You Recently Traveled Abroad? No MIGRATION.396133 7747 Information not available 09/14/2022 Do You Have Any Dietary Restrictions? No MIGRATION.628222 2095 Information not available 09/14/2022 Do You Or Have You Ever Used Any Other Forms Of Tobacco Or Nicotine? No MIGRATION.856235 5069 Information not available 09/14/2022 Sex: Female Functional Status Question Answer Note LastModified by [employer] Details LastModified Time Do you have difficulty walking or climbing stairs? No MIGRATION.8794396 026 Information not available 09/14/2022 Do you have transportation difficulties? No MIGRATION.6271961 026 Information not available 09/14/2022 Are you able to walk? YESWOREST MIGRATION.4011470 026 Information not available 09/14/2022 Do you have difficulty doing errands alone? No MIGRATION.7273810 026 Information not available 09/14/2022 Are you able to care for yourself? Yes MIGRATION.4277953 026 Information not available 09/14/2022 Do you have difficulty dressing or bathing? No MIGRATION.0696652 026 Information not available 09/14/2022 What is your exercise level? None MIGRATION.6994026 026 Information not available 09/14/2022 Mental Status Question Answer Note LastModified by Organizat [employer] Details LastModified Time Do you have difficulty concentrating, remembering or making decisions? No MIGRATION.[id number] 6 Information not available 09/14/2022 Family History Relationship Description Onset Age of this Age Resolved Age Notes LastModified by Organization Details LastModified Time Father Essential hypertension Not available 08/08/2024 16:06:47 Father Family history of stroke [email or web address] Not available 16:06:47 Father Diabetes mellitus Not available 2024 16:45:21 Mother Essential hypertension Not available 08/08/2024 16:06:47 Mother Arthritis Not available 08/29/2024 16:45:33 Mother Diabetes mellitus MIGRATION.213 [id number] Not available 09/14/2022 16:25:51 Maternal Grandfather Essential hypertension Not available 08/08/2024 16:06:47 Maternal Grandfather Family history of malignant neoplasm [email or web address] Not available 16:06:47 Maternal Grandfather Heart disease MIGRATION.255 [id number] Not available 09/14/2022 16:25:51 Maternal Grandmother Essential hypertension Not available 08/08/2024 16:06:47 Paternal Grandfather Essential hypertension Not available 08/08/2024 16:06:47 Paternal Grandmother Essential hypertension Not available 08/08/2024 16:06:47 Medical History Condition Response ANXIETY DISORDER Y HAVE YOU BEEN HOSPITALIZED OR SEEN IN [facility] ER IN THE PAST YEAR ? Y Gynecological HistoryNo gynecological history recorded. Obstetrics History GPAL:G 0 P 0 0 0 0 Immunizations Vaccine Type Date Status Note Provider Nam e and Address Organization Details Recorded Time COVID-19, mRNA, LNP-S, PF, 30 mcg/0.3 mL dose 11/30/2020 completed Not Available [facility] 4 12:54:35 COVID-19, mRNA, LNP-S, PF, 30 mcg/0.3 mL dose 11/09/2020 completed Not Available [facility] 4 12:54:35 Past Encounters Encounter ID Performer Location Encounter Start Date Encounter Closed Date Diagnosis/Indication Diagnosis SNOMED-CT Code Diagnosis ICD10 Code Diagnosis Note [id number] [facility] [address] [place] [address] 11/11/2020 00:00:00 11/11/2020 15:07:36 [id number] [facility] [address] [place] [address] 02/10/2021 00:00:00 02/10/2021 12:21:55 [id number] [facility] [place] [address] [place] [address] 03/31/2021 00:00:00 03/31/2021 16:41:34 [id number] [facility] [place] [address] [place] [place] [address] 05/12/2021 00:00:00 05/12/2021 14:46:17 [id number] [facility] [address] [place] [address] 11/02/2021 00:00:00 11/02/2021 10:03:36 [id number] [facility] [address] [place] [address] 03/23/2022 00:00:00 03/23/2022 17:15:44 [id number] [facility] [address] [place] [address] 05/04/2022 00:00:00 05/04/2022 16:57:42 [id number] [facility] [address] [place] [address] 07/06/2022 00:00:00 07/06/2022 17:14:17 [id number] Guicho Benitez MD [facility] [address] [place] [address] 09/26/2023 15:48:07 09/26/2023 16:31:07 Adult health examination 738228106 Z00.00 in good health, keep losing more weight Obesity 967417098 E66.9 diet discussed, getting shots [id number] Guicho Benitez MD [facility] [address] [place] [address] 08/08/2024 16:05:20 08/08/2024 16:46:56 Adult health examination [id number] Z00.00 in good health, keep losing more weightMamm ogram- NEVERFLU- Has not had in a few yrsCOVID- Has had 3 vaccines Obesity 159029881 E66.9 diet discussed, getting shots and has lost lots of weight, gets from gyne Anxiety 20382942 F41.9 start meds Bunion [id number] M21.61 9 [id number] Rusty De La Cruz DPM [facility] [address] [place] [address] 08/29/2024 16:21:41 09/02/2024 17:46:00 Bunion [id number] M21.619 x-rays reviewedtr eatment options reviewedob tain surgical clearancep ending clearance will schedule surg Pain in left foot [id number] 32437 M79.672 as above Pre-surgery testing 1104 85044 Z01.89 as above Health Concerns Section Related Observation LastModified by Organization Detai ls LastModified Time None Recorded Concern Status LastModified by Organization Details LastModified Time None Recorded Advance Directives Directive N: Payers Encounter Date Sequence Insurance Name Policy Number Policy Bass Covered Member ID Bass Member ID Guarantor Name 09/26/2023 2 [place] [id number] Jim N Feenstra [id number] Shilpa N Feenstra 09/26/2023 1 [employer] [facility] EventWith Shilpa N Feenstra [id number] Shilpa N Feenstra 08/08/2024 2 [place] [id number] Jim N Feenstra [id number] Shilpa N Feenstra 08/08/2024 1 [facility] [employer]PPO[facility] Shilpa N Feenstra [id number] Shilpa N Feenstra 08/29/2024 2 [place] [id number] Jim N Feenstra [id number] Shilpa N Feenstra 08/29/2024 1 [facility] (PPO[facility] Shilpa N Feenstra [id number] Shilpa N Feenstra Notes Date Note Type Note Provider Name and Address Organization Details Recorded Time 09/26/2023 text/html Pt is here today for her yearly physical.She has not been seen since he is not having any current problems, she is in good health Obesity- Has lost 39lbs since last OV She is also on Zepbound for weight loss. Has been on med for 3 month. s/p jerrod Benitez MD [address] [address], [place], [address], [employer] 09/26/2023 16:24:46 08/08/2024 text/html Pt is here today for her yearly physical.She is not having any current problems, she is in good health She is having irritability, some anxiety and small little things makes her upset.no depression symptomssleeps fine Has Bunions, getting bigger, wants surgery Obesity- Has lost 37lbs since last OV in 09/2023. She is on Zepbound for weight loss.Her OBGYN prescribed the zepbound. Tolerating it wellHas lost a little over 80lbs all togetherMeds- Zepbound 15mg daily s/p jerrod Benitez MD [address], [place], [address], [employer] 08/08/2024 16:45:04 08/29/2024 text/html . Patient is a 33-year-old female she presents the office with complaints of bilateral bunion pain. Patient states the pain is worse to the left foot. Patient states when she is walking and in certain shoe gear she has more pain she states she can comfortably walk 2-4 blocks she rates her pain as 5/10 and describes it as sharp in nature. Patient states resting and when she removes shoe gear to the area she has no pain. Patient denies any other treatment. Rusty De La Cruz DPM [address], [place], [address], [employer] [facility] [employer] 09/02/2024 17:45:58 OBGyn Episode No OBEpisode recorded.
[2024-09-03 11:11] LABS: Hematocrit 40.2 % (37.0-47.0); Hemoglobin 13.4 g/dL (12.0-15.0); Mean Corpuscular HGB Conc 33.3 g/dl (32-36); Mean Corpuscular Hemoglobin 30.6 pg (26-34); Mean Corpuscular Volume 91.8 fl (80-100); Platelet Count Result 318 k/mm3 (150-375); Red Blood Count 4.38 M/mm3 (4.2-5.4); Red Cell Distribution Width 12.3 % (11.5-14.5); White Blood Count 4.4 K/mm3 (4.5-10.0)
[2024-09-03 11:25] LABS: Alanine Aminotransferase 39 U/L (6-35); Albumin Level 4.4 g/dL (3.5-5.1); Alkaline Phosphatase 67 U/L (38-126); Anion Gap 8 mmol/L (4-12); Aspartate Amino Transferase 25 U/L (14-36); Bilirubin,Total 0.6 mg/dL (0.2-1.3); Blood Urea Nitrogen 14 mg/dL (7-17); CRP 0.7 mg/dL (<1.0); Calcium 9.4 mg/dL (8.4-10.2); Carbon Dioxide 29 mmol/L (22-30); Chloride 104 mmol/L (98-107); Estimated Glomerular Filt Rate > 60; Glucose 81 mg/dL (65-110); Partial Thromboplastin Time 24.6 Seconds (22.3-36.8); Potassium 3.7 mmol/L (3.4-5.0); Sodium 141 mmol/L (137-145)
== END 2024-09-03 10:28 | disposition home or self-care (01) ==
PROVIDERS: PCP Internal Medicine; Visit Provider Podiatrist Foot & Ankle Surgery
DX: Z01.89 Encounter for other specified special examinations (principal); R94.31 Abnormal electrocardiogram [ECG] [EKG]
CPT/HCPCS: 36415; 80053; 83036; 85027; 85610; 85730; 86140; 93005